=== PATIENT | female | born 2005 | race Caucasian/White ===

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

== ENCOUNTER 2024-09-30 07:37 | Emergency (ER) | payer OTHER, SELFPAY ==
--- NOTE | ~2024-09-30 | XR_ITS ---
CLINICAL HISTORY: cough 1 view chest x-ray Comparison: None Findings: Left mid lung consolidation concerning for pneumonia. Normal heart size. Right lung is clear. No effusion or pneumothorax. IMPRESSION: 1. Findings concerning for left midlung pneumonia. This document has been electronically signed by: Rebecca Winn MD on 09/30/2024 08:48:56
[2024-09-30 07:42] VITALS: BP 125/80; PULSE 107; RESP 16; TEMP 36.7; O2SAT 99; BMI 17.2
--- NOTE | 2024-09-30 08:10 | ED.GENADULT ---
HPI - General Adult General Chief complaint: Upper Respiratory Symptoms Stated complaint: CP with cough, flu symptoms Time Seen by Provider: 09/30/24 07:50 Source: patient Mode of arrival: ambulatory Limitations: no limitations History of Present Illness ED Provider: ANDRZEJ Nj HPI narrative: 19-year-old female presents with cough, fatigue, malaise, myalgia, sore throat, chills, chest discomfort only with coughing ongoing for the past 6 days. She reports her mom at home had similar symptoms which have since resolved. Also reports 1 of her siblings had viral pneumonia recently. This morning she had an episode of vomiting after she coughed for awhile. She has been drinking appropriately however reports decreased p.o. intake and not much of an appetite. Normal urinary habits. Denies chest pain, shortness breath, abdominal pain, headache, vision changes, dizziness and weakness. Related Data Previous Rx's ?Medication ?Instructions ?Recorded albuterol sulfate 90 mcg/actuation 2 inh inhalation Q4-6H PRN 09/30/24 breath activated powder inhaler shortness of breath or wheezing #1 ea doxycycline hyclate 100 mg capsule 100 mg PO BID 10 days #20 caps 09/30/24 prednisone 20 mg tablet 40 mg (2 x 20 mg) PO DAILY 5 days 09/30/24 #10 tabs Allergies Allergy/AdvReac Type Severity Reaction Status Date / Time No Known Allergies Allergy Verified 09/30/24 07:46 Review of Systems Review of Systems: Yes all other systems are reviewed and are negative PMFSH Past Medical History Attestation statement: The following information was validated with the patient. Source: old records reviewed and nursing notes reviewed Social History Social History Advance Directives: No Advance Directives Information Provided: No Physical Exam ED Vital Signs: Vital Signs - 24 hr 09/30/24 07:42 Temperature 98.1 F Pulse Rate 107 H Respiratory Rate 16 Blood Pressure 125/80 Pulse Oximetry 99 Oxygen Delivery Method Room Air BMI result Body Mass Index 17.2 vss Appearance: Alert.? Oriented X3.? No acute distress.? Head: Normocephalic, atraumatic, no step-offs or deformities Eyes: Pupils equal, round and reactive to light.? ENT: Pharynx normal. No abscess or exudates. Uvula midline. Speaking in full sentences controlling secretions well. CVS: Normal heart rate and rhythm.? Pulses normal.? Respiratory: No respiratory distress.? Breath sounds normal.? Abdomen: Soft and nontender.? Skin: Skin warm and dry.? Normal skin color.? Normal skin turgor.? Extremities: No lower extremity edema.? No calf ttp. 5/5 strength to bilateral upper and lower extremities Neuro: Oriented X 3.? No motor deficit.? No sensory deficit. CN 2-12 intact Course Reevaluation(s) Reevaluation #1: Flu, COVID, RSV negative. Strep negative. X-ray showing a left mid lung pneumonia. Will start her on doxycycline. Educated patient on diagnosis and treatment plan, answered all question, patient verbalizes understanding. At this time patient will be discharged home, advised to return with new or worsening symptoms. Educated on worrisome signs and symptoms and when to return. At this time I feel comfortable discharge home. Time: 08:58 Medical Decision Making Medical Decision Making [facility] Narrative: 811 19-year-old female presents with viral symptoms times 6 days. Mother was sick with similar symptoms. Physical exam benign. Lungs clear to auscultation. Normal pharynx. History and physical exam concerning for flu versus COVID versus RSV. Unlikely mononucleosis, strep, peritonsillar or retropharyngeal abscess. No signs of threat to airway. No signs of acute respiratory distress. Plan viral testing. Differential Diagnosis Differential Diagnoses: The differential diagnosis associated with the presentation includes (History and physical exam concerning for flu versus COVID versus RSV. Unlikely mononucleosis, strep, peritonsillar or retropharyngeal abscess. No signs of threat to airway. No signs of acute respiratory distress.) Admission/Observation Consideration of admission/observation: Escalation of care including admission/observation considered Lab Data [facility] Lab Attestation statement: I reviewed the patient's lab results. Labs: Lab Results 09/30/24 Range/Units 08:04 Influenza Type A (PCR) NEGATIVE (Negative) Influenza Type B (PCR) NEGATIVE (Negative) RSV RNA Qual (PCR) NEGATIVE (Negative) SARS-CoV-2 RNA (RT-PCR) NEGATIVE (Negative) S. pyogenes GrpA VALDEZ Negative (Negative) Independent Interpretation I performed an independent interpretation of an: Plain X-Ray Radiology Impression Discussion of test interpretation with radiology: I have reviewed the radiologist's reading. Independent Historian Clinical information obtained from an independent historian. History obtained from or confirmed by: Parent (mother ) Prescription Management I considered prescription management with: Other (prednisone, benzoate ) Critical Care Time Critical Care Time Critical Care Time: No Discharge Plan Discharge Clinical Impression: Pneumonia Patient Disposition: Home, Self-Care Instructions: Pneumonia (ED) Additional Instructions: Take your medications as prescribed. If you were prescribed antibiotics today, it is important that you take your medication to their entirety, do not skip any doses, do not finish them early. Follow-up with your primary care provider this week. Return to the emergency department with new or worsening symptoms. Such as fevers, chills, chest pain, shortness of breath, nausea, vomiting, dizziness, headache, vision changes, lethargy In case of emergency call 911 Findings: Left mid lung consolidation concerning for pneumonia. Normal heart size. Right lung is clear. No effusion or pneumothorax. IMPRESSION: 1. Findings concerning for left midlung pneumonia. Prescriptions: New doxycycline hyclate 100 mg capsule 100 mg PO BID 10 Days Qty: 20 0RF prednisone 20 mg tablet 40 mg PO DAILY 5 Days Qty: 10 0RF albuterol sulfate 90 mcg/actuation aerosol powdr breath activated 2 inh inhalation Q4-6H PRN (Reason: shortness of breath or wheezing) Qty: 1 0RF Referrals: Jose Eduardo Jones MD [Primary Care Provider] - 2 days Stand Alone Forms: Work/School Release Print Language: Turkmen
--- OUTSIDE RECORDS SUMMARY | 2024-09-30 08:15 | XMS_ITS | Clinical Summary ---
Author Organization [facility] Address [address] [place] [address] Care Team Providers Care Soa Architect Name Role Phone Jesse Rojas MD Primary Care Provider Allergies No known active allergies Medications Medication Sig Dispensed Refills Start Date End Date Status norethindrone-ethinyl estradiol (Necon 0.5/35, 28,) 0.5-35 mg-mcg per tablet Take 1 Tablet by mouth daily. 04/07/2024 Active Active Problems Problem Noted Date Diagnosed Date Dysmenorrhea 09/30/2022 Overview (08/24/2024): Last Assessment & Plan: See above Prolonged menstruation 09/30/2022 Overview (08/24/2024): Last Assessment & Plan: Discussed normal frequency and length of menses Discussed with patient potential causes of abnormal bleeding including , infection, trauma, anovulation, polyps, fibroids, etc. Patient has never been sexually active - no need for test, GC/CT. Reviewed recommendation for expectant management at this time as irregular bleeding is common with start of OCPs. Pelvic US ordered to assess EMS or other structural causes of AUB. Recommend Ibuprofen 600mg q6h x3-5d to decrease menstrual flow and improve pain. Patient in agreement. All questions answered. Newly recognized heart murmur 01/06/2022 Overview (08/24/2024): 01/11: Referred to Cardiology Elevated bilirubin 06/26/2021 Overview (08/24/2024): 06/2021: elevated michael 1.8 , referal to GI placed Proteinuria 06/23/2021 Weight loss 05/23/2021 Anxiety 04/22/2021 Depression 04/22/2021 Amenorrhea 11/29/2020 Overview (08/24/2024): Refto CHUCK WAGON COOK for evaluation and suggestions due to amenorrhea for 6 months. Underweight 10/26/2019 Immunizations Name Administration Dates Next Due DTaP (Infanrix) 6wks to less than 7yo ,11/12/2005,2004,09/15,2004 VAcA-PGN-SUD (Pentacel) 2mo to less than 5yo 09/02/2005,2004,2004,07/14 HPV 9-valent (Gardisil) 9yo to less than 46yo 01/06/2022,11/11/2020,10/26/2019 Hepatitis B Pediatric (Enger ix B; Recombivax HB) to less than 20 yo 02/18/2005,2004,2004 IPV Inactivated polio (Ipol) 6wks and older 09/11/2009,11/12/2005,2004,07/14 MMR, measles mumps and rubel la Live (Priorix; M-M-R II) 12mo and older 04/04/2010,09/02/2005 Meningococcal MCV4P 11/11/2020,01/07/2016 Pneumococcal Conjugate Vacci ne, 7 Valent 2004,2004 Tdap Tetanus diptheria acell ular pertussis (Boostrix; Adacel) 7yo and older 01/07/2016 Varicella live (Varivax) 12m o and older 09/07/2011,05/19/2005 Surgical History Surgery Date Site/Laterality Comments OTHER SURGICAL HISTORY PROCEDURE: DENIES PREVIOUS SURGERY Medical History Medical History Date Comments Anxiety disorder DX:Anxiety diso rder PCOS (polycystic ovarian syndrome) DX:PCOS (polycystic ovarian syndrome) Family History Medical History Relation Name Comments Migraines Maternal Grandmother Breast cancer Neg Hx Relation Name Status Comments Brother Alive Father Alive Maternal Grandmother Mother Alive Sister Alive Social History Tobacco Use Types Packs/Day Years Used Date Smoking Tobacco: Never Smokeless Tobacco: Never Alcohol Use Standard Drinks/Week Comments Never 0 (1 standard drink = 0.6 oz pur e alcohol) Sex and Gender Information Value Date Recorded Sex Assigned at Not on file Gender Identity Not on file Sexual Orientation Not on file Obstetrics History Last Filed Vital Signs Vital Sign Reading Time Taken Comments Blood Pressure 111/63 04/07/2024 8:30 AM EDT Pulse 100 09/30/2022 4:12 PM EST Temperature - - Respiratory Rate - - Oxygen Saturation - - Inhaled Oxygen Concentration - - Weight 45.5 kg (100 lb 3.2 oz) 04/07/2024 8:30 A M EDT Height 165.1 cm (5' 5 ) 04/07/2024 8:30 AM EDT Body Mass Index 16.67 04/07/2024 8:30 AM EDT Plan of Treatment Upcoming Encounters Date Type Department Care Team (Late st Contact Info) Description 02/21/2025 11:30 AM EDT Office Visit Adult Medicine [facility] [address] [place] [address] Jesse Rojas MD [address] [place] [address] Health Maintenance Due Date Last Done Comments Depression Screening 08/01/2022 Social Influencers of Health Screening 08/01/2022 Annual Well Child Visit (3-21 years old) 01/06/2023 01/06/2022, 11/11/2020, 10/26/2019, Additional history exists COVID-19 Vaccine ( - 2023- season) 2024 Influenza Vaccine (#1) 2024 Gonorrhea/Chlamydia Screening 02/01/2025 02/02/2024 DTaP,Tdap,and Td Vaccines (7 - Td or Tdap) 01/06/2026 01/07/2016, 09/11/2009, 11/12/2005, Additional history exists Pneumococcal Vaccine: Pediatrics (0 to 5 Years) and At-Risk Patients (6 to 64 Years) Aged Out 2004, 2004 No longer eligibl e based on patient's age to complete this topic Hepatitis B Vaccines Completed 02/18/2005, 2004, 2004 HIB Vaccines Completed 09/02/2005, 10/23, 2004, Additional history exists IPV Vaccines Completed 09/11/2009, 10/22, 09/02/2005, Additional history exists MMR Vaccines Completed 04/04/2010, 09/02/2005 Varicella Vaccines Completed 09/07/2011, 05/19/2005 Meningococcal ACWY Vaccine Completed 11/11/2020, HPV Vaccines Completed 01/06/2022, 10/22, 10/26/2019 HIV Screening Completed 02/02/2024, 02/02/2024 Hepatitis C Screening Completed 02/02/2024 Hepatitis A Vaccines Aged Out No long er eligible based on patient's age to complete this topic RSV Immunization Patients Under 20 months Aged Out No longer eligible based on patient's age to complete this topic Procedures Procedure Name Priority Date/Time Associated Diagnosis Comments HEPATITIS C SCREENING Routine 02/02/2024 HIV SCREENING Routine 02/02/2024 GONORRHEA/CHLAMYDIA SCRREENING Routine 02/02/2024 from Last 3 Months or Most Recently Relevant to Health Maintenance Results * HIV Screening (02/02/2024) HIV Screening Abstracted Historical Provider MD TRANG ANSARI E * Hepatitis C Screening (02/02/2024) Hepatitis C Screening Abstracted Historical Provider MD TRANG Altamirano * Gonorrhea/Chlamydia Screening (02/02/2024) Gonorrhea/Chla mydia Screening Abstracted Historical Provider MD TRANG Altamirano from Last 3 Months or Most Recently Relevant to Health Maintenance Care Teams Soa Architect Relationship Specialty Start Date End Date Jesse Rojas MD [address] [place] [address] [facility] - General 01/11/24
[2024-09-30 08:27] LABS: IDNOW Serial# 58CA691E; Strep A Nucleic Acid Negative (Negative)
[2024-09-30 08:53] LABS: Influenza A PCR NEGATIVE (Negative); Influenza B PCR NEGATIVE (Negative); Resp Syncy Virus RNA Qual PCR NEGATIVE (Negative); SARS COV2 PCR INHOUSE NEGATIVE (Negative)
[2024-09-30 09:09] VITALS: BP 108/57; PULSE 106; RESP 17; TEMP 37.3; O2SAT 100
[2024-09-30 09:32] VITALS: BP 125/80; PULSE 107; RESP 16; TEMP 36.7; O2SAT 99
== END 2024-09-30 09:00 | disposition home or self-care (01) ==
PROVIDERS: Emergency Provider Emergency Medicine; PCP Pediatrics
DX: J18.9 Pneumonia, unspecified organism (principal); R05.9 Cough, unspecified; J02.9 Acute pharyngitis, unspecified; Z03.818 Encounter for observation for suspected exposure to other biological agents ruled out
CPT/HCPCS: 0241U; 71045; 87651; 99283; 99284

== ENCOUNTER → 2024-09-30 08:13 | Outpatient (BNV) | payer OTHER, SELFPAY | PROVIDERS: Emergency Provider Emergency Medicine; PCP Pediatrics; Visit Provider Radiology Diagnostic Radiology | DX: R05.9 Cough, unspecified (principal) | CPT/HCPCS: 71045 ==

== ENCOUNTER 2024-12-28 18:00 | Emergency (ER) | payer OTHER, SELFPAY ==
--- NOTE | ~2024-12-28 | US_ITS ---
CLINICAL HISTORY: lower abd pain US pelvis: Transabdominal and Transvaginal with ovarian color Doppler and arterial and venous pulse doppler spectral analysis: Comparison: None Findings: The uterus is normal in size, 7.7 cm in length. Benign Nabothian cysts are present in the cervix. Endometrial thickness is 9.0 mm The RIGHT ovary measures 4.2 x 2.4 x 2.7 cm The LEFT ovary measures 3.5 x 2.5 x 1.9 cm Bilateral ovarian spectral Doppler signals are normal with continuous diastolic flow indicating low resistance. No solid ovarian masses. A 1.0 cm benign right ovarian cyst is present, image 39, series 1. An additional hypoechoic lesion in the right ovary with semi solid contents and through transmission measuring 1.2 cm in diameter is also present. This appearance is consistent with hemorrhagic cyst, image 38. No free fluid Impression: A 1.2 cm right ovarian cyst containing solid material resembling blood products, but with through transmission, most likely a corpus luteum cyst. 2. 10 mm simple cyst with barely perceptible wall is present in the right ovary. This document has been electronically signed by: Jax Ojeda MD on 12/28/2024 19:22:12
[2024-12-28 18:11] VITALS: BP 115/73; PULSE 111; RESP 16; TEMP 36.7; O2SAT 100; BMI 17.5
--- NOTE | 2024-12-28 18:12 | ED_ITS ---
HPI - General Adult General Chief complaint: Abdominal Pain Stated complaint: uterus pain Time Seen by Provider: 12/28/24 18:56 Source: patient Mode of arrival: ambulatory Limitations: no limitations History of Present Illness ED Provider: JAVID WANG narrative: 19 yo female with no PMH here with c/o 5 days of lower abdominal pain with dysuria and vomited this AM. No diarrhea, no vaginal discharge, no vaginal bleeding. She notes the pain is mostly lower and thinks it is her uterus. She has no new sexual partner. MD complaint: uterus pain Onset (ago): day(s) (5) Location: abdomen Radiation: non-radiation Severity: mild Quality: aching Pain Consistency: constant Relieving factors: rest Exacerbating factors: movement Associated symptoms: loss of appetite, nausea/vomiting and other (dysuria) Treatments prior to arrival: none Related Data Previous Rx's ?Medication ?Instructions ?Recorded albuterol sulfate 90 mcg/actuation 2 inh inhalation Q4-6H PRN 09/30/24 breath activated powder inhaler shortness of breath or wheezing #1 ea doxycycline hyclate 100 mg capsule 100 mg PO BID 10 days #20 caps 09/30/24 prednisone 20 mg tablet 40 mg (2 x 20 mg) PO DAILY 5 days 09/30/24 #10 tabs hydrocodone 5 mg-acetaminophen 325 1 tab PO Q6H PRN pain #10 tabs 12/28/24 mg tablet ibuprofen 600 mg tablet 600 mg PO Q6H PRN pain #30 tabs 12/28/24 ondansetron 4 mg disintegrating 4 mg PO Q8H PRN nausea and 12/28/24 tablet vomiting #20 tabs Allergies Allergy/AdvReac Type Severity Reaction Status Date / Time No Known Allergies Allergy Verified 12/28/24 18:14 Review of Systems 2 Review of Systems: Constitutional : No Weight loss, No Fever, No Chills ENT/Mouth : No sore throat, No Rhinorrhea Eyes: No Swelling, No Redness Cardiovascular : No Chest Pain, No SOB, NoEdema Respiratory : No Cough, No Sputum, No Wheezing Gastrointestinal : Positive Nausea, Positive Vomiting, no Diarrhea, positive abdominal Pain, No Hematochezia, No Melena Genitourinary : pos Dysuria, No Urinary Frequency, No Hematuria, No Urgency Musculoskeletal : No joint pain, No Myalgias, No Joint Swelling Skin : No Skin Lesions, No rash Neuro : No Weakness, No Numbness, No Dizziness, No Headache Psych : No Anxiety/Panic, No Depression All other systems reviewed and are negative. [facility] Past Medical History Attestation statement: The following information was validated with the patient. Source: old records reviewed Medical History No pertinent past medical history Social History Social History (Updated 12/28/24 @ 19:14 by Akanksha Boucher DO) Patient Tobacco Use Status: Never used Tobacco Smoked in Last 30 Days: No Use of substances other than those prescribed or required for medical reasons: No Advance Directives: No Advance Directives Information Provided: No Patient : No Physical Exam ED Vital Signs: Vital Signs - 24 hr 12/28/24 18:11 Temperature 98.0 F Pulse Rate 111 H Respiratory Rate 16 Blood Pressure 115/73 Pulse Oximetry 100 Oxygen Delivery Method Room Air BMI result Body Mass Index 17.5 Appearance: Alert. Oriented X3. No acute distress. Eyes: Pupils equal, round and reactive to light. ENT: Pharynx normal. Neck: Normal inspection. Neck supple. CVS: Normal heart rate and rhythm. Pulses normal. Respiratory: No respiratory distress. Breath sounds normal. Abdomen: Soft and moderate ttp in lower abdomen suprapubic no rebound or guarding Skin: Skin warm and dry. Normal skin color. Normal skin turgor. Extremities: No lower extremity edema. No calf ttp Neuro: Oriented X 3. No motor deficit. No sensory deficit. CN2-12 intact Course Course Course Narrative: This is a rapid medical exam performed by Luis Alberto Villar NP: Additional HPI, ROS, PE not included below will be deferred to primary provider. 19 yo female without sig PMHx presents to the ED for 1 week of lower abdominal pain. She reports the pain is a stabbing sensation in her lower abdomen and does not localize to a specific site. Last menstrual period was approximately the 10 of December. She denies vaginal bleeding/discharge, nausea, vomiting no concern for STI. PE: A&O x3, in no acute distress, non toxic appearing Plan: labs, UA. HCG quant, pelvic US Reevaluation(s) Reevaluation #1: she denies concern for STI will defer pelvic exam Medications Administered Discontinued Medications Generic Name Dose Route Start Last Admin Trade Name Freq PRN Reason Stop Dose Admin Hydrocodone Bitart/Acetaminophen 1 tab 12/28/24 19:12 12/28/24 19:43 Hydrocodone Bit/Acetam 5/325 Tablet PO 12/28/24 19:13 1 tab ONCE ONE Administration Ibuprofen 600 mg 12/28/24 19:12 12/28/24 19:43 Ibuprofen 600 Mg Tablet PO 12/28/24 19:13 600 mg ONCE ONE Administration Ondansetron HCl 4 mg 12/28/24 19:12 12/28/24 19:43 Ondansetron Odt 4 Mg Tab.Rapdis TRANSLINGU 12/28/24 19:13 4 mg ONCE ONE Administration Medical Decision Making Medical Decision Making MDM Narrative: 19 yo female with no PMH here with c/o suprapubic pain for 5 days with dysuria on exam no toxic will need basic labs, UA, US to evaluate ovarian cyst. Could be ovarian cyst, UTI, PID, appendicitis. Differential Diagnosis Differential Diagnoses: The differential diagnosis associated with the presentation includes ovarian cyst, PID, appendicitis, UTI Admission/Observation Consideration of admission/observation: Escalation of care including admission/observation considered labs reassuring no signs of infection 5 days of pain without fevers, wbc count - doubt appendicitis will treat as ovarian cyst Lab Data [facility] Lab Attestation statement: I reviewed the patient's lab results. 12/28/24 18:23 12/28/24 18:23 Labs: Lab Results 12/28/24 12/28/24 Range/Units 18:23 20:43 WBC 9.1 (4.8-10.8) X10*3/uL RBC 4.58 (4.20-5.50) X10*6/uL Hgb 13.9 (12.0-16.0) g/dl Hct 41.2 (37.0-47.0) % MCV 90.0 (80.0-98.0) fL MCH 30.3 (27.0-33.0) pg MCHC 33.7 (31.0-35.0) g/dl RDW 12.2 (11.0-16.0) % Plt Count 248 (160-400) X10*3/uL MPV 10.1 (9.4-12.3) fL Immature Gran % (Auto) 0.2 (0.0-0.4) % Neut % (Auto) 92.3 H (45-73) % Lymph % (Auto) 4.2 L (20-40) % [place] % (Auto) 3.0 (2-11) % Eos % (Auto) 0.2 (0-4) % Baso % (Auto) 0.1 (0-2) % Lymph # (Auto) 0.4 L (1.2-4.9) X10*3/uL [place] # (Auto) 0.3 (0.1-1.2) X10*3/uL Eos # (Auto) 0.0 (0.0-0.4) X10*3/uL Baso # (Auto) 0.0 (0.0-0.2) X10*3/uL Abs Immat Gran (auto) 0.02 (0.00-0.03) X10*3/uL Absolute Neuts (auto) 8.4 H (2.0-8.3) x10*3/uL Absolute Nucleated RBC 0.000 (0.0-0.012) X10*3/uL Nucleated RBC % (auto) 0.0 (0.0-0.2) /100WBC Smear Tech's Comments VERIFIED Sodium 138 (135-145) mmol/L Potassium 4.2 (3.3-5.1) mmol/L Chloride 105 (96-108) mmol/L Carbon Dioxide 24 (22-29) mmol/L Anion Gap 13 (12-20) BUN 10 (9-16) mg/dL Creatinine 0.62 (0.5-1.4) mg/dL Estim Creat Clear Calc 105.5 Estimated GFR > 60 Random Glucose 99 (60-115) mg/dL Calcium 9.4 (8.4-10.2) mg/dL Total Bilirubin 1.9 H (0.0-1.0) mg/dL AST 25 (5-31) U/L ALT 15 (0-31) U/L Alkaline Phosphatase 63 (39-117) U/L Total Protein 7.2 (6.5-8.0) g/dL Albumin 4.5 (3.5-5.0) g/dL Beta HCG, Quant < 2 mIU/mL Urine Color Dark Yellow Urine Appearance Clear Urine pH 6.0 (5.0-9.0) Ur Specific [place] >= 1.030 H (1.005-1.025) Urine Protein Trace (Neg-Trace) mg/dL Urine Glucose (UA) Negative (Negative) mg/dL Urine Ketones 15 (Negative) mg/dL Urine Blood Negative (Negative) Urine Nitrite Negative (Negative) Ur Leukocyte Esterase Trace H (Negative) Urine RBC 3-5 H (0-2) /HPF Urine WBC 0-5 (0-5) /HPF Ur Squamous Epith Cells 11-20 (0-2) /HPF Urine Bacteria Trace (None Seen) Hyaline Casts 0-2 (0-2) /LPF Independent Interpretation I performed an independent interpretation of an: Ultrasound (hemorrhagic ovarian cyst) Radiology Impression Discussion of test interpretation with radiology: I have reviewed the radiologist's reading. External Record Review External record reviewed: Outpatient record Prescription Management I considered prescription management with: Pain Medication and Other Discharge Plan Discharge Clinical Impression: Abdominal pain Qualifiers: Abdominal location: lower abdomen, unspecified Qualified Code(s): R10.30 - Lower abdominal pain, unspecified Ovarian cyst Qualifiers: Laterality: bilateral Qualified Code(s): N83.201 - Unspecified ovarian cyst, right side Patient Disposition: Home, Self-Care Instructions: Ovarian Cyst (ED), Abdominal Pain (ED) Additional Instructions: labs and urine reassuring ultrasound shows cysts on both sides return for worsening pain, fevers, vomiting, severe pain, dizziness, fainting rest and stay hydrated pelvic rest for 1 week Findings: The uterus is normal in size, 7.7 cm in length. Benign Nabothian cysts are present in the cervix. Endometrial thickness is 9.0 mm The RIGHT ovary measures 4.2 x 2.4 x 2.7 cm The LEFT ovary measures 3.5 x 2.5 x 1.9 cm Bilateral ovarian spectral Doppler signals are normal with continuous diastolic flow indicating low resistance. No solid ovarian masses. A 1.0 cm benign right ovarian cyst is present, image 39, series 1. An additional hypoechoic lesion in the right ovary with semi solid contents and through transmission measuring 1.2 cm in diameter is also present. This appearance is consistent with hemorrhagic cyst, image 38. No free fluid Impression: A 1.2 cm right ovarian cyst containing solid material resembling blood products, but with through transmission, most likely a corpus luteum cyst. 2. 10 mm simple cyst with barely perceptible wall is present in the right ovary. This document has been electronically signed by: Jax Ojeda MD on 12/28/2024 19:22:12 Prescriptions: New hydrocodone-acetaminophen 5-325 mg tablet 1 tab PO Q6H PRN (Reason: pain) Qty: 10 0RF Rx Instructions: partial fill okay; Partial Fill upon patient request. ibuprofen 600 mg tablet 600 mg PO Q6H PRN (Reason: pain) Qty: 30 0RF ondansetron 4 mg tablet,disintegrating 4 mg PO Q8H PRN (Reason: nausea and vomiting) Qty: 20 0RF No Action doxycycline hyclate 100 mg capsule 100 mg PO BID 10 Days Qty: 20 0RF prednisone 20 mg tablet 40 mg PO DAILY 5 Days Qty: 10 0RF albuterol sulfate 90 mcg/actuation aerosol powdr breath activated 2 inh inhalation Q4-6H PRN (Reason: shortness of breath or wheezing) Qty: 1 0RF Stand Alone Forms: Work/School Release Print Language: Slovak
[2024-12-28 18:34] LABS: Basophils Percent Auto 0.1 % (0-2); Eosinophils Percent Auto 0.2 % (0-4); Hematocrit 41.2 % (37.0-47.0); Hemoglobin 13.9 g/dl (12.0-16.0); Imm Gran Abs Auto 0.02 X10*3/uL (0.00-0.03); Imm Gran Pct Auto 0.2 % (0.0-0.4); Lymphocytes Absolute Auto 0.4 X10*3/uL (1.2-4.9); Lymphocytes Percent Auto 4.2 % (20-40); MANUAL DIFF FLAG SCAN; Mean Corpuscular HGB Conc 33.7 g/dl (31.0-35.0); Mean Corpuscular Hemoglobin 30.3 pg (27.0-33.0); Mean Platelet Volume 10.1 fL (9.4-12.3); Monocytes Absolute Auto 0.3 X10*3/uL (0.1-1.2); Neutrophils Absolute Auto 8.4 x10*3/uL (2.0-8.3); Neutrophils Percent Auto 92.3 % (45-73); Platelet Count 248 X10*3/uL (160-400); Red Blood Count 4.58 X10*6/uL (4.20-5.50); Red Cell Distribution Width 12.2 % (11.0-16.0); SCAN SMEAR FLAG 1; White Blood Count 9.1 X10*3/uL (4.8-10.8)
[2024-12-28 18:52] LABS: Alanine Aminotransferase 15 U/L (0-31); Albumin Level 4.5 g/dL (3.5-5.0); Alkaline Phosphatase 63 U/L (39-117); Anion Gap 13 (12-20); Aspartate Amino Transferase 25 U/L (5-31); Bilirubin Total 1.9 mg/dL (0.0-1.0); Blood Urea Nitrogen 10 mg/dL (9-16); Calcium 9.4 mg/dL (8.4-10.2); Carbon Dioxide 24 mmol/L (22-29); Chloride 105 mmol/L (96-108); Creatinine Clr Calc Pharmacy 105.5; Estimated Glomerular Filt Rate > 60; Glucose Random 99 mg/dL (60-115); HCG Quantitative < 2 mIU/mL; Potassium 4.2 mmol/L (3.3-5.1); Sodium 138 mmol/L (135-145); Total Protein 7.2 g/dL (6.5-8.0)
[2024-12-28 18:55] LABS: SLIDE REVIEW VERIFIED
[2024-12-28] MEDS: Ibuprofen 600 MG TABLET PO (19:43)
[2024-12-28] MEDS: Ondansetron ODT 4 MG TAB.RAPDIS TRANSLINGU (19:43)
[2024-12-28] MEDS: HYDROcodone Bit/Acetam 5/325 TABLET 1 TAB PO (19:43)
--- OUTSIDE RECORDS SUMMARY | 2024-12-28 19:43 | XMS_ITS | Encounter Summary ---
Author Organization [facility] Address [address] [place] [address] Care Team Providers Care Equity Structurer Name Role Phone Teodora Quick MD Primary Care Provider Jesse Rojas MD Primary Care Provider Encounter Details Date Type Department Care Team Description 03/29/2023 Release of Information Medical Records [address] [place] [address] Abstract, Provider Social History Tobacco Use Types Packs/Day Years Used Date Smoking Tobacco: Never Smokeless Tobacco: Never Alcohol Use Standard Drinks/Week Comments Never 0 (1 standard drink = 0.6 oz pur e alcohol) Sex Assigned at Date Recorded Not on file Job Start Date Occupation Industry Not on file Not on file Not on file documented as of this encounter Plan of Treatment Not on file documented as of this encounter Visit Diagnoses Not on filedocumented in this encounter Care Teams Equity Structurer Relationship Specialty Start Date End Date Teodora Quick MD [address] [place] [id number] PCP - General Internal Medicine 03/24/23 01/10/24 Jesse Rojas MD [address] [place] [id number] PCP - General Internal Medicine 01/11/24 documented as of this encounter
--- OUTSIDE RECORDS SUMMARY | 2024-12-28 19:43 | XMS_ITS | Encounter Summary ---
Author Organization [facility] Address [address] [place] [address] Care Team Providers Care Metal Pickling Equipment Operator Name Role Phone Ignacio Fox MD Primary Care Provider Unava Laquita Reid MD Primary Care Provider [phone] Jules Simpson MD Primary Care Provider [phone] Teodora Quick MD Primary Care Provider [phone] Jesse Rojas MD Primary Care Provider Encounter Details Date Type Department Care Team Description 04/23/2021 Refill Pediatrics - [facility] [address], [place] [id number] Mariel Ambriz, [facility] [address], [place] [phone] Social History Tobacco Use Types Packs/Day Years Used Date Smoking Tobacco: Never Smokeless Tobacco: Never Alcohol Use Standard Drinks/Week Comments Not Asked 0 (1 standard drink = 0.6 oz pur e alcohol) Sex Assigned at Date Recorded Not on file Job Start Date Occupation Industry Not on file Not on file Not on file COVID-19 Exposure Response Date Recorded In the last month, have you been in contact with someone who was confirmed or suspected to have Coronavirus / COVID-19? No / Unsure 04/22/2021 11:12 AM EDT documented as of this encounter Miscellaneous Notes * Telephone Encounter - Mariel Hammer - 04/23/2021 1:28 PM EDT When was patients last PE/WCC? 11/10 When is patients next PE/WCC scheduled? Recall list Ignacio Fox RX REQUEST WHEN MED IS ON THE LIST: All of the medications requested were on the CURRENT MEDS list Did you check the Pharmacy information above?: YES Indicate how soon the patient needs the script: NOÉ Patient would like script to be: E-PRESCRIBED/FAXED TO PHARMACY Was sent to the [facility] pharmacy Is the doctor here today?: YES Can the message wait until the doctor returns?: YES Has the patient been told that the prescription will not be filled until the end of the day? NO Ignacio Fox Payor: [employer] / Plan: [employer] / Product Type: MEDICAID RISK documented in this encounter Plan of Treatment Not on file documented as of this encounter Visit Diagnoses Not on filedocumented in this encounter Care Teams Metal Pickling Equipment Operator Relationship Specialty Start Date End Date Ignacio Fox MD PCP - General Pediatrics 01/26/19 09/24/21 Laquita Deng MD [address] [place] [id number] PCP - General Pediatrics 09/25/21 09/29/22 Jules Simpson MD [address] [place] [id number] PCP - General Internal Medicine 09/30/22 03/23/23 Teodora Quick MD [address] [place] [id number] PCP - General Internal Medicine 03/24/23 01/10/24 Jesse Rojas MD [address] [place] [id number] PCP - General Internal Medicine 01/11/24 documented as of this encounter
--- OUTSIDE RECORDS SUMMARY | 2024-12-28 19:43 | XMS_ITS | Clinical Summary ---
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 4 Active ProAir RespiClick 90 mcg/actuation aerosol powdr breath activated INHALE 2 PUFFS EVERY 4 TO 6 HOURS NEEDED FOR SHORTNESS OF BREATH OR WHEEZING 5 Active predniSONE (DELTASONE) 20 mg tablet Take 2 tablets (40 mg total) by mouth 1 (one) time each day. for 5 days 5 Active ondansetron ODT (ZOFRAN-ODT) 8 mg disintegrating tablet Dissolve 1 tablet (8 mg total) on top of the tongue every 8 (eight) hours if needed for nausea or vomiting. 30 tablet 5 5 Active omeprazole (PriLOSEC) [address] capsule Take 1 capsule (20 mg total) by mouth 1 (one) time each day. Do not crush or chew. 30 each 5 5 Active Active Problems Problem Noted Date Diagnosed [...] Depression 04/22/2021 Amenorrhea 11/29/2020 Overview (08/24/2024): [employer] for evaluation and suggestions due to amenorrhea for 6 months. Underweight 10/26/2019 Encounters Date Type Department Care Team Description 10/11/2024 7:48 AM EST - 10/11/2024 11:59 PM EST Hospital Encounter Radiology Department - [address] [phone] Nausea; Cough, unspecified type; Pneumonia due to infectious organism, unspecified laterality, unspecified part of lung Discharge Disposition: Home or Self Care 10/10/2024 1:00 PM EST Office Visit Adult Medicine [address] [phone] Dioni Vizcaino PA Nausea (Primary Dx); Cough, unspecified type; Pneumonia due to infectious organism, unspecified laterality, unspecified part of lung 10/09/2024 Telephone Adult Medicine [address] [phone] Jesse Rojas MD Vomiting; Nausea from Last 3 Months Immunizations Name Administration Dates Next Due DTaP (Infanrix) 6wks to less than 7yo ,11/12/2005,2004,09/15,2004 [id number] (Pentacel) 2mo to less than 5yo 09/02/2005,2004,2004,07/14 [...] Date Smoking Tobacco: Never Smokeless Tobacco: Never Tobacco Cessation:Counseling Given: Not Answered Alcohol Use Standard Drinks/Week Comments Never 0 (1 standard drink = 0.6 oz pur e alcohol) Housing Instability Answer Date Recorde d Are you worried that in the next 2 months you may not have stable housing? No 10/10/2024 Food Access & Nutrition Answer Date Rec orded Do you have access to a vari ety of food including fruits and vegetables? Yes 10/10/2024 Access to Healthcare Answer Date Record ed Within the last 3 months, ho w many times did you visit the emergency department for your medical care? 1 10/10/2024 Health Literacy Answer Date Recorded How often do you need to hav e someone help you when you read instructions, pamphlets, or other written material from your doctor or pharmacy? Never 10/10/2024 Caregiver: How often do you need to have someone help you when you read instructions, pamphlets, or other written material from your doctor or pharmacy? Not on file 10/10/2024 Financial Risk Answer Date Recorded How hard is it for you to pa y for the very basics like food, housing, medical care, and air conditioning / heating? Not very hard 10/10/2024 Transportation Answer Date Recorded Has the lack of transportati on kept you from meetings, work, or from getting things needed for daily living? No Has the lack of transportati on kept you from medical appointments or from getting medications? No 10/10/2024 Social Isolation Answer Date Recorded How often do you feel lonely or isolated from those around you? Sometimes 10/10/2024 Food Risk Answer Date Recorded Within the past 12 months we worried whether our food would run out before we got money to buy more. Never true 10/10/2024 Within the past 12 months th e food we bought just didn't last and we didn't have money to get more. Never true 10/10/2024 Dependent Care Answer Date Recorded Do you need help finding or paying for care for your loved ones. For example, child life therapist or elderly care for an older adult? No 10/10/2024 Education Answer Date Recorded Do you think completing more education or training, like finishing a GED, going to college, or learning a trade, would be helpful for you? Yes 10/10/2024 Employment and Income Answer Date Recor ded During the last four weeks, have you been actively looking for work? No 10/10/2024 Living Situation Answer Date Recorded What is your living situation? 0 10/10/2024 Comments No Sex and Gender Information Value Date Recorded Sex Assigned at Not on file Legal Sex Female 3:57 AM EST Gender Identity Not on file Sexual Orientation Not on file Obstetrics History Last Filed Vital Signs Vital Sign Reading Time Taken Comments Blood Pressure 116/65 10/10/2024 1:03 PM EST Pulse 112 10/10/2024 1:03 PM EST Temperature 36.4 ??C (97.5 ??F) 10/10/2024 1:03 PM ES T Respiratory Rate 13 10/10/2024 1:03 PM EST Oxygen Saturation - - Inhaled Oxygen Concentration - - Weight 48.1 kg (106 lb) 10/10/2024 1:03 PM EST Height 165.1 cm (5' 5 ) 10/10/2024 1:03 PM EST Body Mass Index 17.64 10/10/2024 1:03 PM EST Plan of Treatment Upcoming Encounters Date Type Department Care Team (Late st Contact Info) Description 02/21/2025 11:30 AM EDT Office Visit Adult Medicine [facility] [address] [place] [phone] Jesse Rojas MD [address] [place] [address] Health Maintenance Due Date Last Done Comments Meningococcal B Vaccine (1 of 2 - Standard) 2020 Annual Well Child Visit (3-21 years old) 01/06/2023 01/06/2022, 11/11/2020, 10/26/2019, Additional history exists COVID-19 Vaccine ( season) 2024 03/23/2021, 03/02/2021 Gonorrhea/Chlamydia Screening 02/01/2025 02/02/2024 Depression Screening 10/10/2025 10/10/2024 Social Influencers of Health Screening 10/10/2025 10/10/2024 DTaP,Tdap,and Td Vaccines (7 - Td or Tdap) 01/06/2026 01/07/2016, 09/11/2009, 11/12/2005, Additional history exists Pneumococcal Vaccine: Pediatrics (0 to 5 Years) and At-Risk Patients (6 to 64 Years) Aged Out 2004, 2004 No longer eligibl e based on patient's age to complete this topic Hepatitis B Vaccines Completed 02/18/2005, 2004, 2004 HIB Vaccines Completed 09/02/2005, 08/23, 2004, Additional history exists IPV Vaccines Completed 09/11/2009, 10/22, 09/02/2005, Additional history exists MMR Vaccines Completed 04/04/2010, 09/02/2005 Varicella Vaccines Completed 09/07/2011, 05/19/2005 Meningococcal ACWY Vaccine Completed 11/11/2020, HPV Vaccines Completed 01/06/2022, 10/22, 10/26/2019 HIV Screening Completed 02/02/2024, 02/02/2024 Hepatitis C Screening Completed 02/02/2024 Hepatitis A Vaccines Aged Out No long er eligible based on patient's age to complete this topic Influenza Vaccine Discontinued RSV Immunization Patients Under 20 months Aged Out No longer eligible based on patient's age to complete this topic Procedures Procedure Name Priority Date/Time Associated Diagnosis Comments US ABDOMEN COMPLETE Routine 10/11/2024 8 :02 AM EST Nausea Cough, unspecified type Pneumonia due to infectious organism, unspecified laterality, unspecified part of lung CBC WITH AUTO DIFFERENTIAL Routine 10/10/2024 1:46 PM EST Nausea Cough, unspecified type Pneumonia due to infectious organism, unspecified laterality, unspecified part of lung LIPASE Routine 10/10/2024 1:46 PM EST Nausea Cough, unspecified type Pneumonia due to infectious organism, unspecified laterality, unspecified part of lung CBC AND DIFFERENTIAL Routine 10/10/2024 1:46 PM EST Nausea Cough, unspecified type Pneumonia due to infectious organism, unspecified laterality, unspecified part of lung COMPREHENSIVE METABOLIC PANEL Routine 10/10/2024 1:46 PM EST Nausea Cough, unspecified type Pneumonia due to infectious organism, unspecified laterality, unspecified part of lung HCG, SERUM, QUALITATIVE Routine 10/10/2024 1:46 PM EST Nausea Cough, unspecified type Pneumonia due to infectious organism, unspecified laterality, unspecified part of lung HEPATITIS C SCREENING Routine 02/02/2024 HIV SCREENING Routine 02/02/2024 GONORRHEA/CHLAMYDIA SCRREENING Routine 02/02/2024 from Last 3 Months or Most Recently Relevant to Health Maintenance Results * US Abdomen Complete (10/11/2024 8:02 AM EST) Anatomical Region Laterality Modality Body Ultrasound 10/11/2024 10:0 6 AM EST Narrative 10/11/2024 10:09 AM EST Abdominal ultrasound. History abdominal pain. No prior studies are available for comparison. Gallbladder is normal in appearance. There is no biliary ducts dilatation. Common biliary duct measures 3 mm. Liver was visualized without evidence of focal abnormalities measuring 14 cm in long axis. No focal lesions were identified within the liver. There is normal flow in the portal vein. Spleen is normal in size and echogenicity measuring 7.5 cm. Visualized portion of the IVC and abdominal aorta are unremarkable. Both kidneys were visualized without evidence of focal abnormalities with normal size and echogenicity. There is no ascites. CONCLUSIONS: Normal abdominal ultrasound. -------- FINAL REPORT -------- Dictated By: Annette Babb Dictated Date: 10/11/2024 10:06 ET Assigned Physician: Annette Babb Reviewed and Electronically Signed By: Annette Babb Signed Date: 10/11/2024 10:09 ET Workstation ID: [id number] Transcribed By: Self Edit Transcribed Date: 10/11/2024 10:06 ET Procedure Note Annette Babb MD - 10/11/2024 Abdominal ultrasound. History abdominal pain. No prior studies are available for comparison. Gallbladder is normal in appearance. There is no biliary ducts dilatation.Common biliary duct measures 3 mm. Liver was visualized without evidenceof focal abnormalities measuring 14 cm in long axis. No focal lesions wereidentified within the liver. There is normal flow in the portal vein.Spleen is normal in size and echogenicity measuring 7.5 cm. Visualizedportion of the IVC and abdominal aorta are unremarkable. Both kidneys werevisualized without evidence of focal abnormalities with normal size andechogenicity. There is no ascites. CONCLUSIONS: Normal abdominal ultrasound. -------- FINAL REPORT -------- Dictated By: Annette Babb Dictated Date: 10/11/2024 10:06 ET Assigned Physician: Annette Babb Reviewed and Electronically Signed By: Annette Babb Signed Date: 10/11/2024 10:09 ET Workstation ID: [id number] Transcribed By: Self Edit Transcribed Date: 10/11/2024 10:06 ET us Dioni DONNELLY IMG US PROCEDURES Final R esult * (ABNORMAL) CBC auto differential (10/10/2024 1:46 PM EST) WBC 5.2 4.8 - 10.8 K/mcL LAB HEMETOLOGY METHOD 10/10/2024 4:43 PM [facility] RBC 4.40 3.80 - 4.80 M/mcL LAB HEMETOLOGY METHOD 10/10/2024 4:43 PM [facility] Hemoglobin 14.0 11.5 - 16.0 g/dL LAB HEMETOLOGY METHOD 10/10/2024 4:43 PM [facility] Hematocrit 41.6 35.0 - 47.0 % LAB HEMETOLOGY METHOD 10/10/2024 4:43 PM [facility] MCV 95.2 79.0 - 98.0 FL LAB HEMETOLOGY METHOD 10/10/2024 4:43 PM [facility] MCH 32.0 27.0 - 32.0 pcg LAB HEMETOLOGY METHOD 10/10/2024 4:43 PM [facility] MCHC 33.7 32.0 - 37.0 g/dL LAB HEMETOLOGY METHOD 10/10/2024 4:43 PM [facility] RDW 12.8 11.0 - 15.0 % LAB HEMETOLOGY METHOD 10/10/2024 4:43 PM [facility] Platelets 454(H) 130 - 400 K/mcL LAB HEMETOLOGY METHOD 10/10/2024 4:43 PM [facility] MPV 10.2 7.0 - 11.0 FL LAB HEMETOLOGY METHOD 10/10/2024 4:43 PM [facility] NRBC 0.0 <1.0 % LAB HEMETOLOGY METHOD 10/10/2024 4:43 PM [facility] NRBC Absolute 0.00 <0.10 K/mcL LAB HEMETOLOGY METHOD 10/10/2024 4:43 PM [facility] Neutrophils Relative 58.1 % LAB HEMETOLOGY METHOD 10/10/2024 4:43 PM [facility] Lymphocytes Relative 26.5 % LAB HEMETOLOGY METHOD 10/10/2024 4:43 PM [facility] Monocytes Relative 13.2 % LAB HEMETOLOGY METHOD 10/10/2024 4:43 PM [facility] Eosinophils Relative 0.6 % LAB HEMETOLOGY METHOD 10/10/2024 4:43 PM [facility] Basophils Relative 1.2 % LAB HEMETOLOGY METHOD 10/10/2024 4:43 PM [facility] Immature Granulocytes Relative 0.4 % LAB HEMETOLOGY METHOD 10/10/2024 4:43 PM [facility] Neutrophils Absolute 3.01 1.50 - 7.00 K/mcL LAB HEMETOLOGY METHOD 10/10/2024 4:43 PM [facility] Lymphocytes Absolute 1.37 1.00 - 5.00 K/mcL LAB HEMETOLOGY METHOD 10/10/2024 4:43 PM EST [facility] Monocytes Absolute 0.68 0.20 - 1.00 K/[facility] LAB HEMETOLOGY METHOD 10/10/2024 4:43 PM EST [facility] Eosinophils Absolute 0.03 0.00 - 0.50 K/[facility] LAB HEMETOLOGY METHOD 10/10/2024 4:43 PM EST [facility] Basophils Absolute 0.06 0.00 - 0.20 K/[facility] LAB HEMETOLOGY METHOD 10/10/2024 4:43 PM EST [facility] Immature Granulocytes Absolute 0.02 0.00 - 0.03 K/[facility] LAB HEMETOLOGY METHOD 10/10/2024 4:43 PM EST [facility] Blood Venous blood specimen / Unknown Venipuncture / Unknown 10/10/2024 1:46 PM EST 10/10/2024 1:46 PM EST Dioni Vizcaino [place] LAB BLOOD ORDERABLES Lindsay l Result [facility] [address] [place] [address], [place] [phone] * HCG, serum, qualitative (10/10/2024 1:46 PM EST) hCG Qual Negative Negative 10/10/2024 4:59 PM EST [facility] Blood Venous blood specimen / Unknown Venipuncture / Unknown 10/10/2024 1:46 PM EST 10/10/2024 1:46 PM EST [facility] Arnel Vizcaino [place] LAB BLOOD ORDERABLES Lindsay l Result [facility] [address] [place] [address], [place] [phone] * Lipase (10/10/2024 1:46 PM EST) Lipase 71 13 - 75 unit/L LAB CHEMISTRY METHOD 10/10/2024 5:20 PM [facility] Blood Venous blood specimen / Unknown Venipuncture / Unknown 10/10/2024 1:46 PM EST 10/10/2024 1:46 PM EST Dioni DONNELLY LAB BLOOD ORDERABLES Lindsay l Result [facility] [address] [place] [address], * (ABNORMAL) Comprehensive metabolic panel (10/10/2024 1:46 PM EST) Pathologist [facility] Sodium 138 133 - 145 mmol/L LAB CHEMISTRY METHOD 10/10/2024 5:20 PM [facility] Potassium 3.8 3.5 - 5.5 mmol/L LAB CHEMISTRY METHOD 10/10/2024 5:20 PM [facility] Chloride 108 96 - 110 mmol/L LAB CHEMISTRY METHOD 10/10/2024 5:20 PM [facility] CO2 22 21 - 32 mmol/L LAB CHEMISTRY METHOD 10/10/2024 5:20 PM [facility] Anion Gap 8 3 - 11 LAB CHEMISTRY METHOD 10/10/2024 5:20 PM [facility] Glucose 106(H) 70 - 100 mg/dL LAB CHEMISTRY METHOD 10/10/2024 5:20 PM [facility] BUN 12 5 - 25 mg/dL LAB CHEMISTRY METHOD 10/10/2024 5:20 PM [facility] Creatinine 0.96 0.50 - 1.10 mg/dL LAB CHEMISTRY METHOD 10/10/2024 5:20 PM [facility] eGFR 87 >=60 mL/min/1. 73m2 LAB CHEMISTRY METHOD 10/10/2024 5:20 PM [facility] Comment:Calculation based on the??Chronic Kidney Disease Epidemiology Collaboration (CKD-EPI) equation refit??without adjustment for race. BUN/Creatinine Ratio 12.5 LAB CHEMISTRY METHOD 10/10/2024 5:20 PM [facility] Calcium 9.8 8.5 - 10.5 mg/dL LAB CHEMISTRY METHOD 10/10/2024 5:20 PM [facility] AST (SGOT) 20 10 - 42 unit/L LAB CHEMISTRY METHOD 10/10/2024 5:20 PM [facility] ALT (SGPT) 19 10 - 60 unit/L LAB CHEMISTRY METHOD 10/10/2024 5:20 PM [facility] Alkaline Phosphatase 78 42 - 121 unit/L LAB CHEMISTRY METHOD 10/10/2024 5:20 PM [facility] Total Protein 7.5 6.0 - 8.0 g/dL LAB CHEMISTRY METHOD 10/10/2024 5:20 PM [facility] Albumin 4.3 3.2 - 5.0 g/dL LAB CHEMISTRY METHOD 10/10/2024 5:20 PM [facility] Total Bilirubin 2.0(H) 0.0 - 1.4 mg/dL LAB CHEMISTRY METHOD 10/10/2024 5:20 PM [facility] Blood Venous blood specimen / Unknown Venipuncture / Unknown 10/10/2024 1:46 PM EST 10/10/2024 1:46 PM EST Dioni DONNELLY LAB BLOOD ORDERABLES Lindsay murphy Result [facility] [address] [place] [address], [place] [phone] * HIV Screening (02/02/2024) Pathologist [facility] HIV Screening Abstracted Historical Provider HEALTH MAINTENANCE Final Result * Hepatitis C Screening (02/02/2024) Hepatitis C Screening Abstracted Historical Provider HEALTH MAINTENANCE Final Result * Gonorrhea/Chlamydia Screening (02/02/2024) Gonorrhea/Chla mydia Screening Abstracted Historical Provider HEALTH MAINTENANCE Final Result from Last 3 Months or Most Recently Relevant to Health Maintenance Insurance * Guarantor: [employer]ona Yusuf Account Type Relation to Patient Date of Phone Billing Address Personal/Family Self 2005 [address] [place] [address] [facility] Care Teams 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
--- OUTSIDE RECORDS SUMMARY | 2024-12-28 19:43 | XMS_ITS | Encounter Summary ---
Author Organization [facility] Address [address] [place] [address] Care Team Providers Care Technical Translator Name Role Phone Sofya Gonzalez MD Primary Care Provider Ignacio Holcomb MD Primary Care Provider Unava ilable [facility], Pcp Primary Care Provider Ignacio Holcomb MD Primary Care Provider Unava ilable [facility], Pcp Primary Care Provider Ignacio Holcomb MD Primary Care Provider Unava ilable Laquita Deng MD Primary Care Provider [phone] Jules Simpson MD Primary Care Provider [phone] Teodora Quick MD Primary Care Provider [phone] Jesse Rojas MD Primary Care Provider Encounter Details Date Type Department Care Team Description 02/09/2012 Night Triage Doc Medical Records [address] [place] [id number] Abstract, Provider Social History Tobacco Use Types Packs/Day Years Used Date Smoking Tobacco: Never Smokeless Tobacco: Never Comments:dad smokes outside Alcohol Use Standard Drinks/Week Comments Not Asked [...] on filedocumented in this encounter Care Teams Technical Translator Relationship Specialty Start Date End Date Sofya Gonzalez MD PCP - General 11/14/10 08/09/12 Ignacio Fox MD PCP - General Pediatrics 08/10/12 03/28/18 [facility], Pcp PCP - General Internal Medicine 03/29/18 08/16/18 Ignacio Fox MD PCP - General Pediatrics 08/17/18 12/14/18 [facility], Pcp PCP - General Internal Medicine 12/15/18 01/25/19 Ignacio Fox MD PCP - General Pediatrics 01/26/19 09/24/21 Laquita Deng MD [address] [place] [address] PCP - General Pediatrics 09/25/21 09/29/22 Jules Simpson MD [address] [place] [id number] PCP - General Internal Medicine 09/30/22 03/23/23 Teodora Quick MD [address] [place] [address] PCP - General Internal Medicine 03/24/23 01/10/24 Jesse Rojas MD [address] [place] [id number] PCP - General Internal Medicine 01/11/24 documented as of this encounter
--- OUTSIDE RECORDS SUMMARY | 2024-12-28 19:43 | XMS_ITS | Encounter Summary ---
Demographics Address [address] [place] [address] Mobile Phone Home Phone Work Phone Email Address Preferred Language Korean Marital Status Single Christianity Affiliation Unknown Race Unknown Ethnic Group or Author Organization [facility] Address [address] [place] [address] Care Team Providers Care Cleaning Validation Consultant Name Role Phone Laquita Deng MD Primary Care Provider [phone] Jules Simpson MD Primary Care Provider [phone] Teodora Quick MD Primary Care Provider [phone] Jesse Rojas MD Primary Care Provider Reason for Visit * Reason Onset Date Comments [employer] Traffic [employer] Feedback 01/16/2022 [facility] Encounter Details Date Type Department Care Team Description 01/16/2022 Telephone Adult Medicine [facility] [address] [place] [address] Laquita Arndt PA-C [address] [place] [address] Airport Traffic Controller Feedback ([facility]) Social History Tobacco Use Types Packs/Day Years Used Date Smoking Tobacco: Never Smokeless Tobacco: Never Alcohol Use Standard Drinks/Week Comments Not Asked 0 (1 standard drink = 0.6 oz pur e alcohol) Sex Assigned at Date Recorded Not on file Job Start Date Occupation Industry Not on file Not on file Not on file COVID-19 Exposure Response Date Recorded In the last 10 days, have yo u been in contact with someone who was confirmed or suspected to have Coronavirus/COVID-19? No / Unsure 01/06/2022 9:14 AM EDT documented as of this encounter Miscellaneous Notes * Telephone Encounter - Laquita Arndt PA-C - 01/16/2022 5:09 PM EDT Noted * Telephone Encounter - Tatianna Pedro - 01/16/2022 4:37 PM EDT DALT[place], Spoke with specialist at [facility] and faxed requested notes from 01/06/22 office visit to cardiology for further review. documented in this encounter Plan of Treatment Not on file documented as of this encounter Visit Diagnoses Not on filedocumented in this encounter Care Teams Cleaning Validation Consultant Relationship Specialty Start Date End Date Laquita Deng MD [address] [place] [phone] PCP - General Pediatrics 09/25/21 09/29/22 Jules Simpson MD [address] [place] [address] PCP - General Internal Medicine 09/30/22 03/23/23 Teodora Quick MD [address] [place] [id number] PCP - General Internal Medicine 03/24/23 01/10/24 Jesse Rojas MD [address] [place] [id number] PCP - General Internal Medicine 01/11/24 documented as of this encounter
[2024-12-28 21:05] LABS: Color Urine Dark Yellow; Glucose Urine UA Negative (Negative); Leukocyte Esterase Urine Trace (Negative); Nitrite Urine Negative (Negative); Specific Gravity - Urine >= 1.030 (1.005-1.025); UMIC TRIGGER UACC YES; Urine Blood Negative (Negative); Urine Ketones 15 mg/dL (Negative); Urine Protein Trace mg/dL (Neg-Trace)
[2024-12-28 21:06] LABS: Appearance Urine Clear; Bacteria Urine Trace (None Seen); Hyaline Casts Urine 0-2 /LPF (0-2); WBC Urine 0-5 /HPF (0-5)
[2024-12-28 21:38] VITALS: BP 126/86; PULSE 91; RESP 17; TEMP 36.7; O2SAT 100
== END 2024-12-28 21:42 | disposition home or self-care (01) ==
PROVIDERS: Registered Nurse Emergency; Emergency Provider Emergency Medicine; PCP Pediatrics
DX: N83.201 Unspecified ovarian cyst, right side (principal); R10.30 Lower abdominal pain, unspecified
CPT/HCPCS: 36415; 76830; 76856; 80053; 81001; 81003; 84702; 85025; 99284

== ENCOUNTER → 2024-12-28 18:15 | Outpatient (BNV) | payer OTHER, SELFPAY | PROVIDERS: Emergency Provider Emergency Medicine; PCP Pediatrics; Visit Provider Radiology Diagnostic Radiology | DX: N83.201 Unspecified ovarian cyst, right side (principal) | CPT/HCPCS: 76830; 76856 ==

== ENCOUNTER 2024-12-30 15:39 | Emergency (ER) | payer OTHER, SELFPAY ==
[2024-12-30 15:47] VITALS: BP 132/88; PULSE 85; RESP 14; TEMP 36.7; O2SAT 100; BMI 17.5
--- NOTE | 2024-12-30 15:47 | ED_ITS ---
HPI - General Adult General Chief complaint: Nausea/Vomiting/Diarrhea Stated complaint: dizziness,nausea seen 12/28 Time Seen by Provider: 12/30/24 16:33 Source: patient Limitations: no limitations History of Present Illness ED Provider: Yuyl Curtis PA-C HPI narrative: 19-year-old female presents with fatigue and lightheaded dizziness. Patient states she was recently diagnosed with a ovarian cysts on December 28. In her discharge paperwork, there were return precautions for onset of dizziness, lightheadedness, nausea vomiting. She thought she was supposed to come in for assessment. Patient states she feels tired, she has been working many hours, today is her 6th day of work. Denies recent cough or cold symptoms or fever. Denies abdominal pain, active vomiting, diarrhea, vaginal bleeding. Related Data Previous Rx's ?Medication ?Instructions ?Recorded albuterol sulfate 90 mcg/actuation 2 inh inhalation Q4-6H PRN 09/30/24 breath activated powder inhaler shortness of breath or wheezing #1 ea doxycycline hyclate 100 mg capsule 100 mg PO BID 10 days #20 caps 09/30/24 prednisone 20 mg tablet 40 mg (2 x 20 mg) PO DAILY 5 days 09/30/24 #10 tabs hydrocodone 5 mg-acetaminophen 325 1 tab PO Q6H PRN pain #10 tabs 12/28/24 mg tablet ibuprofen 600 mg tablet 600 mg PO Q6H PRN pain #30 tabs 12/28/24 ondansetron 4 mg disintegrating 4 mg PO Q8H PRN nausea and 12/28/24 tablet vomiting #20 tabs Allergies Allergy/AdvReac Type Severity Reaction Status Date / Time No Known Allergies Allergy Verified 12/30/24 15:49 Review of Systems 2 Review of Systems: Yes all other systems are reviewed and are negative Constitutional: Constitutional: Reports fatigue and Denies fever(s) Cardiovascular: Cardiovascular: Denies chest pain and Denies dyspnea Respiratory: Respiratory: Denies cough and Denies dyspnea Gastrointestinal: Gastrointestinal: Denies abdominal pain, Denies diarrhea, Reports nausea and Denies vomiting Genitourinary: Genitourinary: Denies pelvic pain and Denies vaginal discharge Endocrine: Endocrine: Reports fatigue PMFSH Past Medical History Attestation statement: The following information was validated with the patient. Medical History No pertinent past medical history Social History Social History (Updated 12/28/24 @ 19:14 by Akanksha Boucher DO) Patient Tobacco Use Status: Never used Tobacco Smoked in Last 30 Days: No Use of substances other than those prescribed or required for medical reasons: No Advance Directives: No Advance Directives Information Provided: No Do you have a plan to hurt others: No Plan Patient : No Physical Exam ED Vital Signs: Vital Signs - 24 hr 12/30/24 15:47 12/30/24 17:32 Temperature 98.1 F 98.0 F Pulse Rate 85 70 Respiratory Rate 14 14 Blood Pressure 132/88 107/74 Pulse Oximetry 100 100 Oxygen Delivery Method Room Air Room Air BMI result Body Mass Index 17.5 Const Other: Alert, well-appearing sitting up in bed on her phone Orientation/consciousness: patient oriented x3 Resp Effort & Inspection: normal respiratory effort Cardio Other: Normal peripheral perfusion Skin Other: Warm dry no rash Neuro General: patient oriented x3, gait normal, no focal motor deficits and CN's II- XI intact bilaterally Psych Other: Cooperative Course Course Course Narrative: RME performed by Vannessa Louis PA-C. Patient is a 19 year old assigned female at presenting to the emergency department with dizziness and lightheadedness. Patient states that she was seen here on 12/28/2024 for abdominal pain and diagnosed with ovarian cysts. Patient states that her abdominal pain has since resolved and now she is just feeling lightheaded. Detailed physical exam and review of systems are deferred to the biology lecturer. EKG, labs, and swabs ordered. Patient placed back in the waiting room pending room availability and results. Medications Administered Generic Name Dose Route Start Last Admin Trade Name Freq PRN Reason Stop Dose Admin Sodium Chloride 1,000 mls @ 999 mls/hr 12/30/24 16:45 12/30/24 16:58 Ns IV 12/30/24 17:45 999 mls/hr .Q1H1M ISAURA Administration Discontinued Medications Generic Name Dose Route Start Last Admin Trade Name Freq PRN Reason Stop Dose Admin Ondansetron HCl 4 mg 12/30/24 16:34 12/30/24 16:57 Ondansetron Hcl 4 Mg/2 Ml Vial IVPUSH 12/30/24 16:35 4 mg ONCE ONE Administration Medical Decision Making Medical Decision Making MDM Narrative: 19-year-old female presents with fatigue and lightheaded dizziness. Patient states she was recently diagnosed with a ovarian cysts on December 28. In her discharge paperwork, there were return precautions for onset of dizziness, lightheadedness, nausea vomiting. She thought she was supposed to come in for assessment. Patient states she feels tired, she has been working many hours, today is her 6th day of work. Denies recent cough or cold symptoms or fever. Denies abdominal pain, active vomiting, diarrhea, vaginal bleeding. Problem: Ovarian cysts History: Per patient I have considered the following differential diagnoses: Ruptured hemorrhagic cyst, torsion, anemia, dehydration, electrolyte disturbance, viral syndrome, Plan: Patient having vague symptoms, it sounds as if she is tired, she has been working many hours. She has no specific infectious symptoms. She is not having abdominal or pelvic pain to suggest increased size of cysts/ruptured cyst/torsion. She does not require imaging. Screening labs are in process including , viral panel. I gave the patient IV fluid and Zofran, she is eager for discharge when her treatment is complete. I have independently reviewed the following tests: Labs: No leukocytosis, not anemic, no electrolyte abnormality, not , viral panel negative Lab Data 12/30/24 16:07 12/30/24 16:07 Labs: Lab Results 12/30/24 Range/Units 16:07 WBC 4.1 L (4.8-10.8) X10*3/uL RBC 4.01 L (4.20-5.50) X10*6/uL Hgb 12.4 (12.0-16.0) g/dl Hct 36.1 L (37.0-47.0) % MCV 90.0 (80.0-98.0) fL MCH 30.9 (27.0-33.0) pg MCHC 34.3 (31.0-35.0) g/dl RDW 12.0 (11.0-16.0) % Plt Count 228 (160-400) X10*3/uL MPV 10.1 (9.4-12.3) fL Immature Gran % (Auto) 0.2 (0.0-0.4) % Neut % (Auto) 53.6 (45-73) % Lymph % (Auto) 33.4 (20-40) % [place] % (Auto) 11.9 H (2-11) % Eos % (Auto) 0.7 (0-4) % Baso % (Auto) 0.2 (0-2) % Lymph # (Auto) 1.4 (1.2-4.9) X10*3/uL [place] # (Auto) 0.5 (0.1-1.2) X10*3/uL Eos # (Auto) 0.0 (0.0-0.4) X10*3/uL Baso # (Auto) 0.0 (0.0-0.2) X10*3/uL Abs Immat Gran (auto) 0.01 (0.00-0.03) X10*3/uL Absolute Neuts (auto) 2.2 (2.0-8.3) x10*3/uL Absolute Nucleated RBC 0.000 (0.0-0.012) X10*3/uL Nucleated RBC % (auto) 0.0 (0.0-0.2) /100WBC Sodium 141 (135-145) mmol/L Potassium 3.7 (3.3-5.1) mmol/L Chloride 105 (96-108) mmol/L Carbon Dioxide 26 (22-29) mmol/L Anion Gap 14 (12-20) BUN 14 (9-16) mg/dL Creatinine 0.82 (0.5-1.4) mg/dL Estim Creat Clear Calc 79.8 Estimated GFR > 60 Random Glucose 92 (60-115) mg/dL Calcium 9.0 (8.4-10.2) mg/dL Magnesium 2.0 (1.6-2.6) mg/dL Total Bilirubin 0.4 (0.0-1.0) mg/dL AST 24 (5-31) U/L ALT 12 (0-31) U/L Alkaline Phosphatase 56 (39-117) U/L Total Protein 6.6 (6.5-8.0) g/dL Albumin 4.0 (3.5-5.0) g/dL Beta HCG, Quant < 2 mIU/mL Influenza Type A (PCR) NEGATIVE (Negative) Influenza Type B (PCR) NEGATIVE (Negative) RSV RNA Qual (PCR) NEGATIVE (Negative) SARS-CoV-2 RNA (RT-PCR) NEGATIVE (Negative) Discharge Plan Discharge Clinical Impression: Fatigue Patient Disposition: Home, Self-Care Instructions: Fatigue (ED) Additional Instructions: All of your screening labs were normal, the viral panel was negative. Prescriptions: No Action hydrocodone-acetaminophen 5-325 mg tablet 1 tab PO Q6H PRN (Reason: pain) Qty: 10 0RF Rx Instructions: partial fill okay; Partial Fill upon patient request. ibuprofen 600 mg tablet 600 mg PO Q6H PRN (Reason: pain) Qty: 30 0RF ondansetron 4 mg tablet,disintegrating 4 mg PO Q8H PRN (Reason: nausea and vomiting) Qty: 20 0RF doxycycline hyclate 100 mg capsule 100 mg PO BID 10 Days Qty: 20 0RF prednisone 20 mg tablet 40 mg PO DAILY 5 Days Qty: 10 0RF albuterol sulfate 90 mcg/actuation aerosol powdr breath activated 2 inh inhalation Q4-6H PRN (Reason: shortness of breath or wheezing) Qty: 1 0RF Stand Alone Forms: Work/School Release Print Language: Belarusian
--- NOTE | 2024-12-30 15:49 | ECG_ITS ---
Test Reason : abd pain dizzy Blood Pressure : */* mmHG Vent. Rate : 73 BPM Atrial Rate : 73 BPM P-R Int : 168 ms QRS Dur : 80 ms QT Int : 356 ms P-R-T Axes : 54 81 56 degrees QTcB Int : 392 ms Normal sinus rhythm with sinus arrhythmia Normal ECG No previous ECGs available Referred By: Vannessa Louis Electronically Signed By: NEO COUCH
--- OUTSIDE RECORDS SUMMARY | 2024-12-30 16:12 | XMS_ITS | Encounter Summary ---
Demographics Address [address] [place] [address] Mobile Phone Home Phone Work Phone Email Address Preferred Language Greek Marital Status Single Restorationist Affiliation Unknown Race Unknown Ethnic Group or Author Organization [facility] Address [address] [place] [address] Care Team Providers Care Bus Steward Name Role Phone Laquita Deng MD Primary Care Provider [phone] Jules Simpson MD Primary Care Provider [phone] Teodora Quick MD Primary Care Provider [phone] Jesse Rojas MD Primary Care Provider Reason for Visit * Reason Onset Date Comments Weather Forcaster Feedback 01/16/2022 [facility]iology Encounter Details Date Type Department Care Team Description 01/16/2022 Telephone Adult Medicine [facility] [address] [place] [address] Laquita Arndt PA-C [address] [place] [address] Weather Forcaster Feedback ([facility]) Social History Tobacco Use Types [...] Tatianna Pedro - 01/16/2022 4:37 PM EDT [place], Spoke with specialist at [facility] and faxed requested notes from 01/06/22 office visit to cardiology for further review. documented in this encounter Plan of Treatment Not on file documented as of this encounter Visit Diagnoses Not on filedocumented in this encounter Care Teams Bus Steward Relationship Specialty Start Date End Date Laquita Deng MD [address] [place] [address] PCP - General Pediatrics 09/25/21 09/29/22 Jules Simpson MD [address] [place] [address] PCP - General Internal Medicine 09/30/22 03/23/23 Teodora Quick MD [address] [place] [address] PCP - General Internal Medicine 03/24/23 01/10/24 Jesse Rojas MD [address] [place] [address] PCP - General Internal Medicine 01/11/24 documented as of this encounter
--- OUTSIDE RECORDS SUMMARY | 2024-12-30 16:12 | XMS_ITS | Clinical Summary ---
Author Organization [address] Address [address] [place] [phone] Phone Care Team Providers Care Tool Polisher Name Role Phone Jesse Rojas MD Primary [...] Depression 04/22/2021 Amenorrhea 11/29/2020 Overview (08/24/2024): [employer] for evaluation and suggestions due to amenorrhea for 6 months. Underweight 10/26/2019 Encounters Date Type Department Care Team Description 10/11/2024 7:48 AM EST - 10/11/2024 11:59 PM EST Hospital Encounter Radiology Department - [address] [phone] Nausea; Cough, unspecified type; Pneumonia due to infectious organism, unspecified laterality, unspecified part of lung Discharge Disposition: Home or Self Care 10/10/2024 1:00 PM EST Office Visit Adult Medicine [address] [phone] Dioni Vizcaino PA Nausea (Primary Dx); Cough, unspecified type; Pneumonia due to infectious organism, unspecified laterality, unspecified part of lung 10/09/2024 Telephone Adult Medicine [address] [phone] Jesse Rojas MD Vomiting; Nausea from Last 3 Months Immunizations Name Administration Dates Next Due DTaP (Infanrix) 6wks to less than 7yo ,11/12/2005,2004,09/15,2004 [id number] (Pentacel) 2mo to less than 5yo 09/02/2005,2004,2004,07/14 [...] care for your loved ones. For example, children's entertainer or elderly care for an older adult? [...] 11:30 AM EDT Office Visit Adult Medicine [facility] [address] [place] [address] Jesse Rojas MD [address] [place] [address] Health Maintenance Due Date Last Done Comments [...] Signed Date: 10/11/2024 10:09 ET Workstation ID: [id number] Transcribed By: Self Edit Transcribed Date: 10/11/2024 [...] Signed Date: 10/11/2024 10:09 ET Workstation ID: [id number] Transcribed By: Self Edit Transcribed Date: 10/11/2024 10:06 ET us Dioni DONNELLY IMG US PROCEDURES Final R esult * (ABNORMAL) CBC auto differential (10/10/2024 1:46 PM EST) WBC 5.2 4.8 - 10.8 K/mcL LAB HEMETOLOGY METHOD 10/10/2024 4:43 PM [facility] RBC 4.40 3.80 - 4.80 M/mcL LAB HEMETOLOGY METHOD 10/10/2024 4:43 PM [facility] Hemoglobin 14.0 11.5 - 16.0 g/dL LAB HEMETOLOGY METHOD 10/10/2024 4:43 PM [facility] Hematocrit 41.6 35.0 - 47.0 % LAB HEMETOLOGY METHOD 10/10/2024 4:43 PM [facility] MCV 95.2 79.0 - 98.0 FL LAB HEMETOLOGY METHOD 10/10/2024 4:43 PM [facility] MCH 32.0 27.0 - 32.0 pcg LAB HEMETOLOGY METHOD 10/10/2024 4:43 PM [facility] MCHC 33.7 32.0 - 37.0 g/dL LAB HEMETOLOGY METHOD 10/10/2024 4:43 PM [facility] RDW 12.8 11.0 - 15.0 % LAB HEMETOLOGY METHOD 10/10/2024 4:43 PM [facility] Platelets 454(H) 130 - 400 K/mcL LAB HEMETOLOGY METHOD 10/10/2024 4:43 PM [facility] MPV 10.2 7.0 - 11.0 FL LAB HEMETOLOGY METHOD 10/10/2024 4:43 PM [facility] NRBC 0.0 <1.0 % LAB HEMETOLOGY METHOD 10/10/2024 4:43 PM [facility] NRBC Absolute 0.00 <0.10 K/mcL LAB HEMETOLOGY METHOD 10/10/2024 4:43 PM [facility] Neutrophils Relative 58.1 % LAB HEMETOLOGY METHOD 10/10/2024 4:43 PM [facility] Lymphocytes Relative 26.5 % LAB HEMETOLOGY METHOD 10/10/2024 4:43 PM [facility] Monocytes Relative 13.2 % LAB HEMETOLOGY METHOD 10/10/2024 4:43 PM [facility] Eosinophils Relative 0.6 % LAB HEMETOLOGY METHOD 10/10/2024 4:43 PM [facility] Basophils Relative 1.2 % LAB HEMETOLOGY METHOD 10/10/2024 4:43 PM [facility] Immature Granulocytes Relative 0.4 % LAB HEMETOLOGY METHOD 10/10/2024 4:43 PM [facility] Neutrophils Absolute 3.01 1.50 - 7.00 K/mcL LAB HEMETOLOGY METHOD 10/10/2024 4:43 PM [facility] Lymphocytes Absolute 1.37 1.00 - 5.00 K/mcL LAB HEMETOLOGY METHOD 10/10/2024 4:43 PM EST [facility] Monocytes Absolute 0.68 0.20 - 1.00 K/[facility] LAB HEMETOLOGY METHOD 10/10/2024 4:43 PM EST [facility] Eosinophils Absolute 0.03 0.00 - 0.50 K/[facility] LAB HEMETOLOGY METHOD 10/10/2024 4:43 PM EST [facility] Basophils Absolute 0.06 0.00 - 0.20 K/[facility] LAB HEMETOLOGY METHOD 10/10/2024 4:43 PM EST [facility] Immature Granulocytes Absolute 0.02 0.00 - 0.03 K/[facility] LAB HEMETOLOGY METHOD 10/10/2024 4:43 PM EST [facility] Blood Venous blood specimen / Unknown Venipuncture / Unknown 10/10/2024 1:46 PM EST 10/10/2024 1:46 PM EST Dioni Vizcaino [place] LAB BLOOD ORDERABLES Lindsay l Result [facility] [address] [place] [address], [place] [phone] * HCG, serum, qualitative (10/10/2024 1:46 PM EST) hCG Qual Negative Negative 10/10/2024 4:59 PM EST [facility] Blood Venous blood specimen / Unknown Venipuncture / Unknown 10/10/2024 1:46 PM EST 10/10/2024 1:46 PM EST [facility] Arnel Vizcaino [place] LAB BLOOD ORDERABLES Lindsay l Result [facility] [address] [place] [address], [place] [phone] * Lipase (10/10/2024 1:46 PM EST) Lipase 71 13 - 75 unit/L LAB CHEMISTRY METHOD 10/10/2024 5:20 PM [facility] Blood Venous blood specimen / Unknown Venipuncture / Unknown 10/10/2024 1:46 PM EST 10/10/2024 1:46 PM EST Dioni DONNELLY LAB BLOOD ORDERABLES Lindsay l Result [facility] [address] [place] [address], * (ABNORMAL) Comprehensive metabolic panel (10/10/2024 1:46 PM EST) Pathologist [facility] Sodium 138 133 - 145 mmol/L LAB CHEMISTRY METHOD 10/10/2024 5:20 PM [facility] Potassium 3.8 3.5 - 5.5 mmol/L LAB CHEMISTRY METHOD 10/10/2024 5:20 PM [facility] Chloride 108 96 - 110 mmol/L LAB CHEMISTRY METHOD 10/10/2024 5:20 PM [facility] CO2 22 21 - 32 mmol/L LAB CHEMISTRY METHOD 10/10/2024 5:20 PM [facility] Anion Gap 8 3 - 11 LAB CHEMISTRY METHOD 10/10/2024 5:20 PM [facility] Glucose 106(H) 70 - 100 mg/dL LAB CHEMISTRY METHOD 10/10/2024 5:20 PM [facility] BUN 12 5 - 25 mg/dL LAB CHEMISTRY METHOD 10/10/2024 5:20 PM [facility] Creatinine 0.96 0.50 - 1.10 mg/dL LAB CHEMISTRY METHOD 10/10/2024 5:20 PM [facility] eGFR 87 >=60 mL/min/1. 73m2 LAB CHEMISTRY METHOD 10/10/2024 5:20 PM [facility] Comment:Calculation based on the??Chronic Kidney Disease Epidemiology Collaboration (CKD-EPI) equation refit??without adjustment for race. BUN/Creatinine Ratio 12.5 LAB CHEMISTRY METHOD 10/10/2024 5:20 PM [facility] Calcium 9.8 8.5 - 10.5 mg/dL LAB CHEMISTRY METHOD 10/10/2024 5:20 PM [facility] AST (SGOT) 20 10 - 42 unit/L LAB CHEMISTRY METHOD 10/10/2024 5:20 PM [facility] ALT (SGPT) 19 10 - 60 unit/L LAB CHEMISTRY METHOD 10/10/2024 5:20 PM [facility] Alkaline Phosphatase 78 42 - 121 unit/L LAB CHEMISTRY METHOD 10/10/2024 5:20 PM [facility] Total Protein 7.5 6.0 - 8.0 g/dL LAB CHEMISTRY METHOD 10/10/2024 5:20 PM [facility] Albumin 4.3 3.2 - 5.0 g/dL LAB CHEMISTRY METHOD 10/10/2024 5:20 PM [facility] Total Bilirubin 2.0(H) 0.0 - 1.4 mg/dL LAB CHEMISTRY METHOD 10/10/2024 5:20 PM [facility] Blood Venous blood specimen / Unknown Venipuncture / Unknown 10/10/2024 1:46 PM EST 10/10/2024 1:46 PM EST Dioni DONNELLY LAB BLOOD ORDERABLES Lindsay murphy Result [facility] [address] [place] [address], [place] [phone] * HIV Screening (02/02/2024) Pathologist [facility] HIV Screening Abstracted Historical Provider HEALTH MAINTENANCE [...] Self 2005 [address] [place] [address] [facility] Care Teams Tool Polisher Relationship Specialty Start Date End Date Jesse Rojas MD [address] [place] [address] PCP - General 01/11/24
--- OUTSIDE RECORDS SUMMARY | 2024-12-30 16:12 | XMS_ITS | Encounter Summary ---
Author Organization [facility] Address [address] [place] [address] Care Team Providers Care Parts Finisher Name Role Phone Sofya Gonzalez MD Primary Care Provider Ignacio Holcomb MD [facility] Care Provider Ignacio Holcomb MD Primary Care Provider Unava ilable [facility], Pcp Primary Care Provider Ignacio Holcomb MD Primary Care Provider Unava ilable Laquita Deng MD Primary Care Provider [phone] Jules Simpson MD Primary Care Provider Teodora Quick MD Primary Care Provider [phone] Jesse Rojas MD Primary Care Provider Encounter Details Date Type Department Care Team Description 11/18/2010 Business Doc Medical Records [address] [place] [id number] Abstract, Provider Social History Tobacco Use Types Packs/Day Years Used Date Smoking Tobacco: Never Assessed Sex Assigned at Date Recorded Not on file Job Start Date Occupation Industry Not on file Not on file Not on file documented as of this encounter Plan of Treatment Not on file documented as of this encounter Visit Diagnoses Not on filedocumented in this encounter Care Teams Parts Finisher Relationship Specialty Start Date End Date Sofya Gonzalez MD PCP - General 11/14/10 08/09/12 Ignacio Fox MD PCP - General Pediatrics 08/10/12 03/28/18 [facility], Pcp PCP - General Internal Medicine 03/29/18 08/16/18 Ignacio Fox MD PCP - General Pediatrics 08/17/18 12/14/18 [facility], [facility] PCP - General Internal Medicine 12/15/18 01/25/19 Ignacio Fox MD PCP - General Pediatrics 01/26/19 09/24/21 Laquita Deng MD [address] [place] [address] PCP - General Pediatrics 09/25/21 09/29/22 Jules Simpson MD [address] [place] [address] PCP - General Internal Medicine 09/30/22 03/23/23 Teodora Quick MD [address] [place] [address] PCP - General Internal Medicine 03/24/23 01/10/24 Jesse Rojas MD [address] [place] [address] PCP - General Internal Medicine 01/11/24 documented as of this encounter
--- OUTSIDE RECORDS SUMMARY | 2024-12-30 16:12 | XMS_ITS | Encounter Summary ---
Author Organization [facility] Address [address] [place] [address] Care Team Providers Care Set O Type Operator Name Role Phone Ignacio Fox MD Primary Care Provider Unava Laquita Reid MD Primary Care Provider [phone] Jules Simpson MD Primary Care Provider [phone] Teodora Quick MD Primary Care Provider [phone] Jesse Rojas MD Primary Care Provider Encounter Details Date Type Department Care Team Description 04/23/2021 Refill Pediatrics - [place] [address] [place], [place] [phone] Mariel Ambriz, [facility] [address] [place], [place] [phone] Social History Tobacco Use Types Packs/Day Years [...] E-PRESCRIBED/FAXED TO PHARMACY Was sent to the [facility] pharmacy Is the doctor here today?: YES Can the message wait until the doctor returns?: YES Has the patient been told that the prescription will not be filled until the end of the day? NO Ignacio Fxo Payor: [employer] / Plan: [employer] / Product Type: MEDICAID RISK documented in this encounter Plan of Treatment Not on file documented as of this encounter Visit Diagnoses Not on filedocumented in this encounter Care Teams Set O Type Operator Relationship Specialty Start Date End Date Ignacio Fox MD PCP - General Pediatrics 01/26/19 09/24/21 Laquita Deng MD [address] [place] [address] PCP - General Pediatrics 09/25/21 09/29/22 Jules Simpson MD [address] [place] [address] PCP - General Internal Medicine 09/30/22 03/23/23 Teodora Quick MD [address] [place] [address] PCP - General Internal Medicine 03/24/23 01/10/24 Jesse Rojas MD [address] [place] [address] PCP - General Internal Medicine 01/11/24 documented as of this encounter
--- OUTSIDE RECORDS SUMMARY | 2024-12-30 16:12 | XMS_ITS | Encounter Summary ---
Author Organization [facility] Address [address] [place] [address] Care Team Providers Care Tractor Mechanic Helper Name Role Phone Sofya Gonzalez MD Primary Care Provider Ignacio Holcomb MD Primary Care Provider Unava ilable [facility], Pcp Primary Care Provider Ignacio Holcomb MD Primary Care Provider Unava ilable [facility], Pcp Primary Care Provider Ignacio Holcomb MD Primary Care Provider Unava ilable Laquita Deng MD Primary Care Provider [phone] Jules Simpson MD Primary Care Provider [phone] Teodora Quick MD Primary Care Provider [phone] Jesse Rojas MD Primary Care Provider Encounter Details Date Type Department Care Team Description 11/18/2010 Release of Information Medical Records [address] [place] [id number] Abstract, Provider Social History Tobacco Use Types Packs/Day Years Used Date Smoking Tobacco: Never Assessed Sex Assigned at Date Recorded Not on file Job Start Date Occupation Industry Not on file Not on file Not on file documented as of this encounter Plan of Treatment Not on file documented as of this encounter Visit Diagnoses Not on filedocumented in this encounter Care Teams Tractor Mechanic Helper Relationship Specialty Start Date End Date Sofya Gonzalez MD PCP - General 11/14/10 08/09/12 Ignacio Fox MD PCP - General Pediatrics 08/10/12 03/28/18 [facility], Pcp PCP - General Internal Medicine 03/29/18 08/16/18 Ignacio Fox MD PCP - General Pediatrics 08/17/18 12/14/18 [facility], [facility] PCP - General Internal Medicine 12/15/18 01/25/19 Ignacio Fox MD PCP - General Pediatrics 01/26/19 09/24/21 Laquita Deng MD [address] [place] [id number] PCP - General Pediatrics 09/25/21 09/29/22 Jules Simpson MD [address] [place] [id number] PCP - General Internal Medicine 09/30/22 03/23/23 Teodora Quick MD [address] [place] [id number] PCP - General Internal Medicine 03/24/23 01/10/24 Jesse Rojas MD [address] [place] [id number] PCP - General Internal Medicine 01/11/24 documented as of this encounter
[2024-12-30 16:13] LABS: MANUAL DIFF FLAG NO
[2024-12-30 16:14] LABS: Basophils Percent Auto 0.2 % (0-2); Eosinophils Percent Auto 0.7 % (0-4); Hematocrit 36.1 % (37.0-47.0); Hemoglobin 12.4 g/dl (12.0-16.0); Imm Gran Abs Auto 0.01 X10*3/uL (0.00-0.03); Imm Gran Pct Auto 0.2 % (0.0-0.4); Lymphocytes Absolute Auto 1.4 X10*3/uL (1.2-4.9); Lymphocytes Percent Auto 33.4 % (20-40); Mean Corpuscular HGB Conc 34.3 g/dl (31.0-35.0); Mean Corpuscular Hemoglobin 30.9 pg (27.0-33.0); Mean Platelet Volume 10.1 fL (9.4-12.3); Monocytes Absolute Auto 0.5 X10*3/uL (0.1-1.2); Monocytes Percent Auto 11.9 % (2-11); Neutrophils Absolute Auto 2.2 x10*3/uL (2.0-8.3); Neutrophils Percent Auto 53.6 % (45-73); Platelet Count 228 X10*3/uL (160-400); Red Blood Count 4.01 X10*6/uL (4.20-5.50); White Blood Count 4.1 X10*3/uL (4.8-10.8)
[2024-12-30 16:26] LABS: Alanine Aminotransferase 12 U/L (0-31); Alkaline Phosphatase 56 U/L (39-117); Anion Gap 14 (12-20); Aspartate Amino Transferase 24 U/L (5-31); Bilirubin Total 0.4 mg/dL (0.0-1.0); Blood Urea Nitrogen 14 mg/dL (9-16); Carbon Dioxide 26 mmol/L (22-29); Chloride 105 mmol/L (96-108); Creatinine Clr Calc Pharmacy 79.8; Estimated Glomerular Filt Rate > 60; Glucose Random 92 mg/dL (60-115); Potassium 3.7 mmol/L (3.3-5.1); Sodium 141 mmol/L (135-145); Total Protein 6.6 g/dL (6.5-8.0)
[2024-12-30 16:34] LABS: HCG Quantitative < 2 mIU/mL
[2024-12-30 16:51] LABS: Influenza A PCR NEGATIVE (Negative); Influenza B PCR NEGATIVE (Negative); Resp Syncy Virus RNA Qual PCR NEGATIVE (Negative); SARS COV2 PCR INHOUSE NEGATIVE (Negative)
[2024-12-30] MEDS: ondansetron HCL 4 MG/2 ML VIAL IVPUSH (16:57)
[2024-12-30] MEDS: 0.9 % Sodium Chloride 1,000 ML 999 ML IV (16:58)
[2024-12-30 17:32] VITALS: BP 107/74; PULSE 70; RESP 14; TEMP 36.7; O2SAT 100
--- NOTE | 2024-12-30 17:35 | PC.NURSE ---
Patient presented to ED c/o dizziness and lightheadedness. Denies pain. Patient c/o being nauseous w/ dry heaving. Last vomited on , non bloody. No diarrhea. VSS and up to date. NSR on the financial aid counselor. 20 G in LFA currently running NaCl 1 liter. Administered zofran per provider order with good effect. Plan of care on going.
[2024-12-30 18:01] VITALS: BP 107/74; PULSE 70; RESP 14; TEMP 36.7; O2SAT 100
== END 2024-12-30 18:01 | disposition home or self-care (01) ==
PROVIDERS: Physician Assistant Medical; Emergency Provider Emergency Medicine Emergency Medical Services; PCP Pediatrics
DX: R53.83 Other fatigue (principal); R11.2 Nausea with vomiting, unspecified; R42 Dizziness and giddiness; I49.9 Cardiac arrhythmia, unspecified; R10.2 Pelvic and perineal pain; Z03.818 Encounter for observation for suspected exposure to other biological agents ruled out; Z79.899 Other long term (current) drug therapy
CPT/HCPCS: 0241U; 36415; 80053; 83735; 84702; 85025; 93005; 96374; 99284; 99285; J2405

== ENCOUNTER → 2024-12-30 15:49 | Outpatient (BNV) | payer OTHER, SELFPAY | PROVIDERS: Emergency Provider Emergency Medicine Emergency Medical Services; PCP Pediatrics; Visit Provider Internal Medicine | DX: R42 Dizziness and giddiness (principal); R10.9 Unspecified abdominal pain | CPT/HCPCS: 93010 ==

== ENCOUNTER 2025-06-01 11:00 | Emergency (ER) | payer SELFPAY ==
--- NOTE | ~2025-06-01 | US_ITS ---
EXAMINATION: US PELVIS CLINICAL INFORMATION: Pelvic pain COMPARISON: Ultrasound 12/28/2024 TECHNIQUE: Ultrasound of the pelvis is performed using both transabdominal and transvaginal transducers along with Doppler. Transvaginal imaging is performed due to inadequate visualization transabdominally. FINDINGS: LMP: 05/08/2025 Uterus: The uterus is anteverted and measures 8.4 x 2.8 x 4.3 cm. The double wall endometrial thickness is 6 mm. The uterus is smooth in contour and has normal myometrial echogenicity. No focal uterine lesion. Nabothian cysts in the cervix. Small fluid in the cervix. Adnexa: Both ovaries are visualized. There is normal arterial and venous vascular flow to the adnexa.. Right ovary measures 3.8 x 2.4 x 2.7 cm. Volume 13 mL. Septated cyst versus subjacent follicles in the left ovary measuring 1.9 x 0.8 x 0.9 cm. Overlying follicles otherwise seen. Left ovary measures 4.2 x 2.2 x 2.9 cm. Volume 13.6 mL. Follicles seen. US/US pelvic ovarian doppler IMPRESSION: No sonographic evidence of acute findings. Right ovarian 1.9 cm septated cyst versus adjacent follicles. Normal vascular flow in bilateral ovaries.. Electronically signed by: Pancho Baker MD 06/01/2025 01:10 PM EDT
--- NOTE | ~2025-06-01 | US_ITS ---
EXAMINATION: US PELVIS CLINICAL INFORMATION: Pelvic pain COMPARISON: Ultrasound 12/28/2024 TECHNIQUE: Ultrasound of the pelvis is performed using both transabdominal and transvaginal transducers along with Doppler. Transvaginal imaging is performed due to inadequate visualization transabdominally. FINDINGS: LMP: 05/08/2025 Uterus: The uterus is anteverted and measures 8.4 x 2.8 x 4.3 cm. The double wall endometrial thickness is 6 mm. The uterus is smooth in contour and has normal myometrial echogenicity. No focal uterine lesion. Nabothian cysts in the cervix. Small fluid in the cervix. Adnexa: Both ovaries are visualized. There is normal arterial and venous vascular flow to the adnexa.. Right ovary measures 3.8 x 2.4 x 2.7 cm. Volume 13 mL. Septated cyst versus subjacent follicles in the left ovary measuring 1.9 x 0.8 x 0.9 cm. Overlying follicles otherwise seen. Left ovary measures 4.2 x 2.2 x 2.9 cm. Volume 13.6 mL. Follicles seen. US/US pelvic and transvaginal IMPRESSION: No sonographic evidence of acute findings. Right ovarian 1.9 cm septated cyst versus adjacent follicles. Normal vascular flow in bilateral ovaries.. Electronically signed by: Pancho Baker MD 06/01/2025 01:10 PM EDT
[2025-06-01 11:07] VITALS: BP 125/67; PULSE 112; RESP 18; TEMP 37; O2SAT 100; BMI 15.6
--- NOTE | 2025-06-01 11:11 | ECG_ITS ---
Test Reason : abd Blood Pressure : */* mmHG Vent. Rate : 110 BPM Atrial Rate : 110 BPM P-R Int : 142 ms QRS Dur : 76 ms QT Int : 316 ms P-R-T Axes : -19 -14 -7 degrees QTcB Int : 427 ms Sinus tachycardia Possible Inferior infarct , age undetermined Abnormal ECG When compared with ECG of 30-Dec-2024 15:55, Vent. rate has increased by 37 bpm Borderline criteria for Inferior infarct are now Present T wave inversion now evident in Inferior leads Referred By: Alana Marcus Electronically Signed By: MANUEL BO MD
--- NOTE | 2025-06-01 11:13 | ED_ITS ---
HPI - General Adult General Chief complaint: Abdominal Pain Stated complaint: uterus/pelvic pain , UC sent for US Time Seen by Provider: 06/01/25 11:28 History of Present Illness ED Provider: Dr. Otero HPI narrative: 20 y/o F patient; PMH asthma; presents from Urgent Care with report of uterine pain . The patient endorses suprapubic and left sided pain, vaginal spotting, and cramping discomfort with urination. Otherwise denies: fever or chills, nausea/vomiting, chest pain, SOB, cough/congestion. The patient states she is sexually active, LMP 2 weeks ago. She took a home test that was negative. Related Data Previous Rx's ?Medication ?Instructions ?Recorded albuterol sulfate 90 mcg/actuation 2 inh inhalation Q4 -6H PRN 09/30/24 breath activated powder inhaler shortness of breath or wheezing #1 ea doxycycline hyclate 100 mg capsule 100 mg PO BID 10 da ys #20 caps 09/30/24 prednisone 20 mg tablet 40 mg (2 x 20 mg) PO DAILY 5 days 09/30/24 #10 tabs hydrocodone 5 mg-acetaminophen 325 1 tab PO Q6H PRN pa in #10 tabs 12/28/24 mg tablet ibuprofen 600 mg tablet 600 mg PO Q6H PRN pain #30 t abs 12/28/24 ondansetron 4 mg disintegrating 4 mg PO Q8H PRN nausea and 12/28/24 tablet vomiting #20 tabs Allergies Allergy/AdvReac Type Severity Reaction Status Date / Time No Known Allergies Allergy Verified 06/01/25 11:11 Review of Systems 2 Review of Systems: Yes all other systems are reviewed and are negative [facility] Past Medical History Attestation statement: The following information was validated with the patient. Source: old records reviewed Medical History No pertinent past medical history Social History Social History Alcohol intake: never Patient Tobacco Use Status: Never used Tobacco Smoked in Last 30 Days: No Use of substances other than those prescribed or required for medical reasons: No Advance Directives: No Advance Directives Information Provided: Yes Patient : No Physical Exam ED Vital Signs: Vital Signs - 24 hr 06/01/25 11:07 Temperature 98.6 F Pulse Rate 112 H Respiratory Rate 18 Blood Pressure 125/67 Pulse Oximetry 100 Oxygen Delivery Method Room Air BMI result Body Mass Index 15.6 Patient is afebrile, tachycardic, normotensive. Const General: cooperative and no acute distress HENMT Head: Yes normal to inspection and Yes atraumatic Eyes General: appearance normal, both eyes and all related structures Pupils: Equal, round and reactive pupils present EOM: EOMs intact bilaterally Neck Neck: Yes normal visual inspection, Yes full ROM and Yes supple Chest Chest palpation & inspection: normal inspection of the chest and normal palpation of entire chest wall Resp Effort & Inspection: normal respiratory effort, able to speak in complete sentences, no cough and no respiratory distress Auscultation: clear to auscultation bilaterally Cardio Rate: tachycardic Rhythm: regular rhythm Peripheral pulses: Peripheral pulses 2+ throughout GI Inspection: Yes normal to inspection, No Abdominal wall edema and No distended Palpation (GI): Soft to palpation, not firm, nontender, no guarding and not rigid Auscultation: normal bowel sounds Back/Spine/Pelvis Back: No back tenderness Neuro Cranial nerves: Yes Equal, round and reactive pupils present Course Course Course Narrative: This is an RME: Additional HPI, ROS, PE not included below will be deferred to primary provider. RME assessment and note performed by: Alana Marcus PA-C This is a 20-year-old female who presents emergency department with concerns of pelvic pain. Patient states that she has been having abnormal vaginal bleeding. States her last menstrual period was 2 weeks ago. She also reports history of ovarian cyst. She took a home test that was negative. Denies any nausea, vomiting or diarrhea. She does report some dysuria. Abdomen is soft with tenderness palpation in the suprapubic region. Plan: Labs, UA, ultrasound, further ER evaluation needed. Reevaluation(s) Reevaluation #1: Patient is afebrile, tachycardic, normotensive. Reviewed triage work up. Symptom control with IVF, Tylenol, Toradol, and Zofran provided. UA is unremarkable with only trace hematuria. No significant cystitis. No significant leukocytosis or anemia. HCG is negative. US is unremarkable. Discussed with patient. She has had one lifetime male sexual partner. She is not concerned for STDs. She declines testing which is appropriate. Patient states she is feeling improved with the treatments below. Low concern at this time for ovarian torsion. Plan: Discharge to home with PCP follow up Return precautions given Medications Administered Discontinued Medications Generic Name Dose Route Start Last Admin Trade Name Francisco PRN Reason Stop Dose Admin Sodium Chloride 1,000 mls @ 999 mls/hr 06/01/25 11:45 06/01/25 14:16 Ns IV 06/01/25 12:45 Infused .Q1H1M ISAURA Infusion Acetaminophen 1,000 mg in 100 mls @ 400 mls/hr 06/01/25 11:38 06/01/25 13:21 Ofirmev IV 06/01/25 11:52 Infused ONCE ONE Infusion Ketorolac Tromethamine 15 mg 06/01/25 11:38 06/01/25 12:48 Ketorolac Tromethamine 15 Mg/Ml Vial IVPUSH 06/01/25 11:39 15 mg ONCE ONE Administration Ondansetron HCl 4 mg 06/01/25 11:38 06/01/25 12:47 Ondansetron Hcl 4 Mg/2 Ml Vial IVPUSH 06/01/25 11:39 4 mg ONCE ONE Administration Medical Decision Making Lab Data 06/01/25 11:26 06/01/25 11:26 Labs: Lab Results 06/01/25 Range/Units 11:26 WBC 5.0 (4.8-10.8) X10*3/uL RBC 4.79 (4.20-5.50) X10*6/uL Hgb 14.3 (12.0-16.0) g/dl Hct 43.8 D (37.0-47.0) % MCV 91.4 (80.0-98.0) fL MCH 29.9 (27.0-33.0) pg MCHC 32.6 (31.0-35.0) g/dl RDW 11.8 (11.0-16.0) % Plt Count 215 (160-400) X10*3/uL MPV 10.3 (9.4-12.3) fL Immature Gran % (Auto) 0.2 (0.0-0.4) % Neut % (Auto) 73.0 (45-73) % Lymph % (Auto) 15.3 L (20-40) % Wheeler % (Auto) 11.1 H (2-11) % Eos % (Auto) 0.2 (0-4) % Baso % (Auto) 0.2 (0-2) % Lymph # (Auto) 0.8 L (1.2-4.9) X10*3/uL Wheeler # (Auto) 0.6 (0.1-1.2) X10*3/uL Eos # (Auto) 0.0 (0.0-0.4) X10*3/uL Baso # (Auto) 0.0 (0.0-0.2) X10*3/uL Abs Immat Gran (auto) 0.01 (0.00-0.03) X10*3/uL Absolute Neuts (auto) 3.7 (2.0-8.3) x10*3/uL Absolute Nucleated RBC 0.000 (0.0-0.012) X10*3/uL Nucleated RBC % (auto) 0.0 (0.0-0.2) /100WBC Sodium 138 (135-145) mmol/L Potassium 3.9 (3.3-5.1) mmol/L Chloride 104 (96-108) mmol/L Carbon Dioxide 25 (22-29) mmol/L Anion Gap 13 (12-20) BUN 11 (9-16) mg/dL Creatinine 0.79 (0.5-1.4) mg/dL Estim Creat Clear Calc 80.4 Estimated GFR > 60 Random Glucose 92 (60-115) mg/dL Calcium 9.5 (8.4-10.2) mg/dL Total Bilirubin 0.8 (0.0-1.0) mg/dL Direct Bilirubin 0.3 (0.0-0.5) mg/dL AST 31 (5-31) U/L ALT 17 (0-31) U/L Alkaline Phosphatase 68 (39-117) U/L Total Protein 7.8 (6.5-8.0) g/dL Albumin 4.8 (3.5-5.0) g/dL Beta HCG, Quant < 2 mIU/mL Urine Color Yellow Urine Appearance Clear Urine pH 6.0 (5.0-9.0) Ur Specific Waucoma 1.010 (1.005-1.025) Urine Protein Negative (Neg-Trace) mg/dL Urine Glucose (UA) Negative (Negative) mg/dL Urine Ketones Negative (Negative) mg/dL Urine Blood Trace H (Negative) Urine Nitrite Negative (Negative) Ur Leukocyte Esterase Trace H (Negative) Urine RBC 0-2 (0-2) /HPF Urine WBC 0-5 (0-5) /HPF Ur Squamous Epith Cells 0-2 (0-2) /HPF Urine Bacteria None Seen (None Seen) Hyaline Casts 0-2 (0-2) /LPF Independent Interpretation I performed an independent interpretation of an: EKG Interpretation: EKG independently interpreted by myself as ST 110BPM with normal intervals without ischemic changes. Radiology Impression Discussion of test interpretation with radiology: I have reviewed the radiologist's reading. Radiologist Impression: EXAMINATION: US PELVIS CLINICAL INFORMATION: Pelvic pain COMPARISON: Ultrasound 12/28/2024 TECHNIQUE: Ultrasound of the pelvis is performed using both transabdominal and transvaginal transducers along with Doppler. Transvaginal imaging is performed due to inadequate visualization transabdominally. FINDINGS: LMP: 05/08/2025 Uterus: The uterus is anteverted and measures 8.4 x 2.8 x 4.3 cm. The double wall endometrial thickness is 6 mm. The uterus is smooth in contour and has normal myometrial echogenicity. No focal uterine lesion. Nabothian cysts in the cervix. Small fluid in the cervix. Adnexa: Both ovaries are visualized. There is normal arterial and venous vascular flow to the adnexa.. Right ovary measures 3.8 x 2.4 x 2.7 cm. Volume 13 mL. Septated cyst versus subjacent follicles in the left ovary measuring 1.9 x 0.8 x 0.9 cm. Overlying follicles otherwise seen. Left ovary measures 4.2 x 2.2 x 2.9 cm. Volume 13.6 mL. Follicles seen. US/US pelvic and transvaginal IMPRESSION: No sonographic evidence of acute findings. Right ovarian 1.9 cm septated cyst versus adjacent follicles. Normal vascular flow in bilateral ovaries.. Electronically signed by: Pancho Baker MD 06/01/2025 01:10 PM EDT RP Discharge Plan Discharge Clinical Impression: Abdominal pain Patient Disposition: Home, Self-Care Instructions: Abdominal Pain (ED) Additional Instructions: You were seen today for abdominal pain. Your US of your pelvis, urine, and lab work was reassuring. There was a very small amount of blood in your urine, no evidence of infection. I recommend if the pain re-occurs you try ibuprofen 400mg once. If that does not improve it then return to the emergency department for further evaluation. Prescriptions: No Action hydrocodone-acetaminophen 5-325 mg tablet 1 tab PO Q6H PRN (Reason: pain) Qty: 10 0RF Rx Instructions: partial fill okay; Partial Fill upon patient request. ibuprofen 600 mg tablet 600 mg PO Q6H PRN (Reason: pain) Qty: 30 0RF ondansetron 4 mg tablet,disintegrating 4 mg PO Q8H PRN (Reason: nausea and vomiting) Qty: 20 0RF doxycycline hyclate 100 mg capsule 100 mg PO BID 10 Days Qty: 20 0RF prednisone 20 mg tablet 40 mg PO DAILY 5 Days Qty: 10 0RF albuterol sulfate 90 mcg/actuation aerosol powdr breath activated 2 inh inhalation Q4-6H PRN (Reason: shortness of breath or wheezing) Qty: 1 0RF Print Language: Ivorian
[2025-06-01 11:48] LABS: MANUAL DIFF FLAG NO
[2025-06-01 11:49] LABS: Appearance Urine Clear; Glucose Urine UA Negative (Negative); PH 6.0 (5.0-9.0); Specific Gravity - Urine 1.010 (1.005-1.025); UMIC TRIGGER UACC YES
[2025-06-01 11:52] LABS: Hematocrit 43.8 % (37.0-47.0); Hemoglobin 14.3 g/dl (12.0-16.0); Imm Gran Abs Auto 0.01 X10*3/uL (0.00-0.03); Imm Gran Pct Auto 0.2 % (0.0-0.4); Lymphocytes Absolute Auto 0.8 X10*3/uL (1.2-4.9); Mean Corpuscular HGB Conc 32.6 g/dl (31.0-35.0); Mean Corpuscular Hemoglobin 29.9 pg (27.0-33.0); Mean Corpuscular Volume 91.4 fL (80.0-98.0); NRBC Abs Auto 0.000 X10*3/uL (0.0-0.012); NRBC Pct Auto 0.0 /100WBC (0.0-0.2); Platelet Count 215 X10*3/uL (160-400); Red Blood Count 4.79 X10*6/uL (4.20-5.50); White Blood Count 5.0 X10*3/uL (4.8-10.8)
[2025-06-01 12:11] LABS: Alanine Aminotransferase 17 U/L (0-31); Albumin Level 4.8 g/dL (3.5-5.0); Alkaline Phosphatase 68 U/L (39-117); Anion Gap 13 (12-20); Aspartate Amino Transferase 31 U/L (5-31); Blood Urea Nitrogen 11 mg/dL (9-16); Calcium 9.5 mg/dL (8.4-10.2); Carbon Dioxide 25 mmol/L (22-29); Chloride 104 mmol/L (96-108); Creatinine Clr Calc Pharmacy 80.4; Estimated Glomerular Filt Rate > 60; Potassium 3.9 mmol/L (3.3-5.1); Sodium 138 mmol/L (135-145); Total Protein 7.8 g/dL (6.5-8.0)
--- NOTE | 2025-06-01 12:45 | PC.NURSE ---
Pt returned from U/S, pt medicated as ordered
[2025-06-01 14:30] VITALS: BP 125/67; PULSE 112; RESP 18; TEMP 37; O2SAT 100
== END 2025-06-01 14:38 | disposition home or self-care (01) ==
PROVIDERS: Physician Assistant Medical; Emergency Provider Emergency Medicine; PCP Pediatrics
DX: R10.32 Left lower quadrant pain (principal); R25.2 Cramp and spasm; R30.0 Dysuria; R10.22 Pelvic and perineal pain left side; R00.0 Tachycardia, unspecified; Z79.899 Other long term (current) drug therapy
CPT/HCPCS: 36415; 76830; 76856; 80048; 80076; 81001; 84702; 85025; 93005; 93975; 96361; 96374; 96375; 99285; J0131; J1885; J2405

== ENCOUNTER → 2025-06-01 11:11 | Outpatient (BNV) | payer MEDICAID, SELFPAY | PROVIDERS: Emergency Provider Emergency Medicine; PCP Pediatrics; Visit Provider Internal Medicine Cardiovascular Disease | DX: R00.0 Tachycardia, unspecified (principal) | CPT/HCPCS: 93010 ==

== ENCOUNTER → 2025-06-01 11:11 | Outpatient (BNV) | payer MEDICAID, SELFPAY | PROVIDERS: Emergency Provider Emergency Medicine; PCP Pediatrics; Visit Provider Radiology Diagnostic Ultrasound | DX: N83.291 Other ovarian cyst, right side (principal) | CPT/HCPCS: 76830; 76856 ==